=== PATIENT | female | born 1960 | race Caucasian/White ===

== ENCOUNTER 2016-08-16 19:56 | Observation (INO) | payer MEDICAID ==
[~2016-08-16] VITALS: Ht 154.9 cm; Wt 64.0 kg
[~2016-08-16 19:56] MED LIST: AMIODARONE 200200 MG PO; AMOXICILLIN 50500 MG PO; ASPIRIN 81MG TA81 MG PO; ATENOLOL25 M1 PO; ATENOLOL25 MG PO; ATENOLOL50 MG PO; AYR SALINE NASA TP; BACTRIM 400 MG-1 TAB PO; BACTRIM DS 8001 TA1 PO; BACTRIM DS 8001 TAB PO; CALCIUM CITRAT200 M1 PO; CALTRATE 600+D1 TAB PO; CARDIZEM CD120 MG PO; CARTIA XT120 MG PO; CEFTIN 250MG T250 MG PO; CEFTIN500 MG PO; CEFUROXIME AXE500 MG PO; CENTRUM SILVER1 EACH PO; CENTRUM SILVER1 TA1 PO; CENTRUM SILVER1 TAB PO; CIPRO 250MG TA250 MG PO; CIPROFLOXACIN500 MG PO; CITRACAL200 MG PO; CLARINEX-D 24 H1 T24 PO; CLARITIN 10MG T10 MG PO; CLARITIN-D 10 M1 T24 PO; CLARITIN-D 24 H1 T24 PO; CLONAZEPAM0.5 M1 PO; COUMADIN 1 MG TA1 MG PO; COUMADIN 2.5MG2.5 MG PO; COUMADIN 5MG TAB5 MG PO; COUMADIN4 MG PO; COUMADIN6 MG PO; DIGOXIN0.125 MG PO; DIGOXIN0.25 MG PO; DOXYCYCLINE HY100 M4 PO; DOXYCYCLINE100 M1 PO; FEOSOL325 MG PO; FERROUS SULFAT325 M1 OR; FLONASE 50 MCG16 GM; FUROSEMIDE 20MG20 MG PO; GABAPENTIN100 MG PO; HYDROCHLOROTH12.5 M1 PO; HYDROXYZINE 25M25 MG PO; HYDROXYZINE HCL25 MG PO; HYDROXYZINE HYD50 M1 PO; HYDROXYZINE10 MG PO; KEFLEX 500MG.500 MG PO; KEFLEX500 M1 PO; KLONOPIN 0.5MG0.5 MG NG; KLONOPIN 0.5MG0.5 MG PO; KLOR-CON M1010 MEQ PO; LANOXIN 0.25M0.25 MG PO; LASIX 20MG. TAB20 MG PO; LASIX 40MG. TAB40 MG PO; LEVAQUIN500 MG PO; LEVOTHROID0.05 MG FT; LEVOTHYROXIN0.125 M1 PO; LEVOTHYROXINE0.05 MG PO; LISINOPRIL 10MG10 MG NG; LISINOPRIL 5MG T5 MG PO; LISINOPRIL/HCTZ1 TA3 PO; LODRANE 24D 121 C24 PO; LOPRESSOR 25MG.25 M1 OR; LOVENOX 6060 MG/0.6 SC; MEDROL 4MG. DOSE4 MG PO; METFORMIN 500M500 M1 PO; MICRO-K10 MEQ PO; NAPROSYN500 M1 PO; NORCO 325 MG-51 TAB PO; PAIN & FEVER325 MG PO; PANTOPRAZOLE SO40 MG PO; PHENERGAN VC +120 ML PO; POTASSIUM CHLO10 ME3 PO; PREDNISONE 10MG10 MG PO; PREDNISONE 20MG20 MG PO; PREDNISONE 5MG.5 MG PO; PREMARIN 0.3MG0.3 MG OR; PROMETHAZINE D180 ML PO; PROMETHAZINE5 ML/UDC PO; PROVENTIL0.09 MG/A1 IH; ROBAXIN-750750 MG PO; SINGULAIR 10 MG10 MG PO; SINGULAIR10 MG PO; SOTALOL80 MG PO; SYMBICORT 10.10.2 ML IH; SYMBICORT1 AE1 IH; SYNTHROID 0.10.15 MG PO; TENORMIN50 MG PO; TESSALON PERLE200 MG PO; TRAMADOL50 M1 PO; TUMS500 MG PO; VISTARIL25 M1 PO; ZOFRAN ODT4 MG PO; ZYVOX600 MG PO
[2016-08-16 19:57] VITALS: BP 125/69
[2016-08-16] MEDS ORDERED: ATENOLOL25 MG PO (20:06)
[2016-08-16 20:32] LABS: HEMOGLOBIN 12.9 g/dL (12.2-16.2); LYMPH # 2.2 K/mm3 (0.7-4.5); LYMPH % 32.6 % (10-50.0)
--- NOTE | 2016-08-16 20:51 | Emergency Room Report ---
History of Present Illness Time Seen by 2025 Presenting Problem in Triage Pt arrived:Walked Presenting Problem:C/O CHEST PAIN WITH PALPITATIONS. STARTED 08/08/2016. HAS BEEN SEEN BY DR CONCEPCION AND RIOS UNDERWOOD FOR DR ONTIVEROS. 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 N Clinical Suspician of Infection? N Mental Status: 1 - Regular (Normal Baseline) Sepsis Risk:Low Sepsis Risk Have you (or family members/close friends) recently traveled outside the [place]? N If Yes, where/when: Have you had exposure to infectious disease within the past month? N TB? Other? Specify: Comment The patient says that she has had chest pain and palpitations for 8 days. She saw her PCP on the first day. She had an outpatient Holter monitor and blood work which were normal. She saw Rios, physician cardiovascular physician assistant for Dr. Ontiveros, gauntlet pairer, yesterday. She was started on atenolol, she says this is not helped. She complains of continued palpitations and says that she has had chest pain off and on all day. She currently has a chest pain in the center of her chest that is been present since 6:00 PM. She denies shortness of breath. She says she has had diaphoresis. She denies nausea. She also says that she has had black stool for one week. She is on iron, but says her stool is normally brown. She saw Dr. Morrow in the office yesterday to get set up for colonoscopy because of abdominal pain. She told him about the black stool and he also scheduled her for an EGD at the same time, she is supposed to have these on Thursday. She is normally on warfarin for chronic atrial fibrillation, but has been on Lovenox injections since instead of warfarin in preparation for her procedure. She says that she called her PCP today and was informed that Dr. Donald was construction site crossing guard and was told to come to the emergency room. ALLERGIES Coded Allergies: latex (Mild, I-HIVES 02/22/16) Home Medications Active Scripts Montelukast Sodium (Singulair) 10 MG PO QHS #30 TAB Prov: 03/30/16 DIGOXIN (Digox) 0.125 MG PO DAILY #30 TAB Prov: 02/23/16 Doxycycline Hyclate 100 MG PO BID #20 CAPSULE Prov: 05/28/16 Reported Medications Fluticasone Propionate (Flonase 50 Mcg Nasal [place]) 1 SPRAY NA DAILY #1 BOT Loratadine (Claritin 10MG) 10 MG PO DAILY BUDESONIDE/FORMOTEROL FUMARATE (Symbicort 160-4.5 Mcg Inhaler) 2 PUFFS IH BID #1 INH Calcium Citrate 600 MG PO DAILY Multivit-Min/FA/Lycopene/Lut (Centrum Silver Tablet) 500 MG PO DAILY Pantoprazole Sodium (Pantoprazole 40MG) 40 MG PO DAILY WARFARIN SOD (Coumadin) 7.5 MG PO SuTuThSa Furosemide (Lasix 40MG) 40 MG PO BID Ferrous Sulfate (Ferrous Sulfate 325MG) 325 MG OR DAILY ALBUTEROL (Proventil Hfa Inhaler) 2 PUFF IH Q6HP PRN BREATHING #1 PUFF Levothyroxine Sodium 0.125 MG PO DAILY #90 TAB MULTIVIT,THER IRON,CA,FA & MIN (Sm Therapeutic M Tablet) 1 TAB PO DAILY Potassium Chloride (Klor-Con M10) 10 MEQ PO DAILY #90 TER Clonazepam (Klonopin 0.5MG) 0.25 MG PO BID WARFARIN SOD (Coumadin) 5 MG PO MWF Gabapentin (Gabapentin 100MG) 100 MG PO QHS Metformin HCl (Metformin) 500 MG PO DAILY ASPIRIN (Aspirin) 81 MG PO DAILY Atenolol (Atenolol) 25 MG PO BID History Medical History General CAD? No Angina: Yes [place]: No Hypertension? Yes Hyperlipidemia? No CHF? Yes DVT? No PE? No COPD? No Asthma? Yes Anemia? No GERD? Yes Gastric ulcers? No GI Bleed? No Hernia? Yes Thyroid Problems? Yes Hypothyroidism? Yes CVA? No Seizures? No Diabetes? Yes Insulin Dependent: No Insulin Pump: No Home FSBS? No Renal Insuffiency? No End Stage Renal Disease? No UTI? Yes Stones? No BPH? No GB Disease: No Nephritic Syndrome? No Asplenia? No Hepatitis? No Sickle Cell Disease? No Arthritis? No Migraines? Yes Cataracts? No Glaucoma? No MRSA? Yes HIV? No TB? No Anxiety? Yes Depression? No Cancer? No More? 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 Hx LMP N/A Family History Family Hx Diabetes Yes CAD Yes Hypertension Yes Hyperlipidemia No Cancer Yes TB No Social History Smoking Hx Smoker: Never Smoker Tobacco: No Packs/day N/A Alcohol Alcohol: No Review of Systems All Other Systems Reviewed and Negative Constitutional diaphoresis, denies fever Respiratory denies shortness of breath Cardiovascular chest pain, palpitations Gastrointestinal see HPI, abdominal pain, denies nausea, denies vomiting Physical Exam Vital Signs Vital Signs Date Time Temp Pulse Resp B/P Pulse O2 O2 Flow FiO2 Ox Delivery Rate 08/17 0025 98.6 77 20 116/71 08/17 0024 77 08/17 0024 94 ROOM AIR 08/17 0015 98.6 77 20 116/71 94 08/17 0013 98.6 77 20 116/71 94 08/16 2325 98.6 70 20 121/64 93 08/16 2305 20 08/16 2240 70 20 132/63 94 08/16 2235 20 08/16 2233 70 20 149/64 94 08/16 2227 20 08/16 2224 70 20 145/70 95 08/16 2218 20 08/16 2213 70 20 133/52 94 08/16 2202 70 20 127/68 95 08/16 2112 70 20 133/68 98 08/16 2028 70 20 118/67 98 08/16 1957 98.6 70 20 125/69 96 General Appearance normal appearance, WD/WN Eye Exam - bilateral eye normal exam, bilateral eye PERRL, bilateral eye EOMI Ear, Nose, Throat hearing grossly normal, normal ENT inspection Neck normal inspection, non-tender, supple, full range of motion Respiratory Status Yes: trachea midline, chest symmetrical, non tender chest. No: respiratory distress. Lung Sounds bilateral: normal breath sounds, lungs clear. Cardiovascular normal exam, regular rate/rhythm, no peripheral edema, no gallop, no JVD, no murmur, no rub, normal peripheral pulses Peripheral Pulses Pulses normal Yes Gastrointestinal normal bowel sounds, normal exam, non tender, soft, no organomegaly Back normal inspection, no CVA tenderness, no vertebral tenderness Extremities non-tender, normal range of motion, normal inspection Rectal normal exam Neurologic alert, gallery manager II-XII nml as tested, normal exam, oriented x 3 Mental status normal mood/affect Skin intact, normal color, warm/dry Medical Decision Making LABS/Meds/Orders Pt receiving controlled substance in ED? No Results/Orders Laboratory Tests 08/16/16 2100: Stool Occult Blood NEGATIVE 08/16/162024: Sodium 145, Potassium 3.3 L, Chloride 108 H, Carbon Dioxide 31, BUN 13, Creatinine 0.9, Estimated Creat Clear 69, Estimated GFR (MDRD) 64, Glucose 132 H, Calcium 8.8, Total Bilirubin 0.4, AST 41 H, ALT 53, Alkaline Phosphatase 87, Creatine Kinase 107, CK-MB (CK-2) Rel Index 2.1, CK and CKMB Interp 2.2, Troponin I 0.02, Total Protein 7.3, Albumin 3.7, Globulin 3.6 H, Albumin/ Globulin Ratio 1.0 L, PT 10.9, INR 1.02, APTT 31.3, WBC 6.6, RBC 4.00 L, Hgb 12.9, Hct 38.7, MCV 96.7, RDW 13.8, Plt Count 202, MPV 6.7 L, Gran % 55.3, Gran # 3.7, Lymphocytes % 32.6, Monocytes % 7.9, Eosinophils % 3.3, Basophils % 0.9, Lymphocytes # 2.2, Monocytes # 0.5, Eosinophils # 0.2, Basophils # 0.1, PUBS MCHC 33.5, MCH 32.4 H Current Medication Orders Sig/Kelley Start time Last Medication Dose Route Stop Time Status Admin Enoxaparin Sodium 60 MG BID 08/17 0900 UNV SC Diagnostic Test (Pha) 1 EACH W/MEALS&HS 08/17 0700 UNV FS 10/16 0659 Insulin Human [rDNA See Dose W/MEALS&HS 08/17 07 UNV origin] Insts (1) SC Morphine Sulfate 2 MG Q2HP PRN 08/16 5475 UNV IV Nicotine 21 MG DAILYP PRN 08/16 2345 UNV TD Ondansetron HCl 4 MG Q6HP PRN 08/16 2345 UNV IV Sodium Chloride 10 ML PRN PRN 08/16 2345 UNV IV Ondansetron HCl 0 .STK-MED ONE 08/16 2316 DC .ROUTE Ondansetron HCl 0 .STK-MED ONE 08/16 2305 DC .ROUTE Morphine Sulfate 0 .STK-MED ONE 08/164 DC .ROUTE Morphine Sulfate 4 MG ONCE ONE 08/16 2300 DC 08/16 IV 08/16 2300 2305 Ondansetron HCl 4 MG ONCE ONE 08/16 2300 DC 08/16 IV 08/16 2300 230 Nitroglycerin 0.4 MG [id number] PRN 08/16 2214 AC 08/16 SL 2235 Nitroglycerin 0 .STK-MED ONE 08/17 2203 DC SL Sodium Chloride 10 ML PRN PRN 08/16 2014 AC 08/16 IV 08/17 Dose Instructions: (1)Insulin Human [rDNA origin]: SEE ADMIN CRITERIA FOR MEDIUM INTENSITY Orders Procedure Date/time Status -1999 CALORIE ADA 08/17 B Active CARDIAC ENZYMES 08/17 0700 Active CARDIAC ENZYMES 08/17 0400 Active CARDIAC ENZYMES 08/17 0100 Active Decision to admit 08/16 2313 Active STOOL OCCULT BLOOD 08/16 2114 Complete PROTIME/PARTIAL PROTIME 08/16 2029 Complete CHEST(2 VIEWS-NOT PORTABLE) 08/16 2009 Active IV SALINE LOCK 08/16 2010 Active SOLAR ENERGY ADVISOR 08/16 2009 Active COMPLETE METABOLIC PANEL 08/16 2009 Complete CBC WITH AUTO DIFF 08/16 2009 Complete CARDIAC ENZYMES 08/16 2009 Complete ADMIT PATIENT 08/16 UNK Active PULSE OXIMETRY REQUEST 08/16 UNK Active OXYGEN REQUEST 08/16 UNK Active VITAL SIGNS 08/16 UNK Active EMERGENCY MANAGER 08/16 UNK Active IV SALINE LOCK 08/16 UNK Active CODE STATUS 08/16 UNK Active PATIENT ACTIVITY ORDER 08/16 UNK Active CM/EKG CM/EKG Comments EKG interpreted by Colby Ny MD: Rhythm: Ventricular paced rhythm, underlying rhythm appears to be atrial fibrillation Rate: 70 No evidence of acute ischemia or injury XRAY/CT/US XRAY/CT/US XRAY chest Comment X-ray interpreted by Colby Ny M.D.: cardiomegaly, pacemaker, sternotomy, mitral and aortic valve replacements, no acute change Progress - 11:00 PM: The patient continues to complain of 10/10 chest pain, although she looks completely comfortable. No response to nitroglycerin. I have discussed the case with Dr. Donald for Dr. Concepcion who agrees to admit the patient to the hospital. We discussed the patient's clinical information, including history, exam, laboratory and radiology results and ED course. Per hospital procedure, I will write temporary bridge inpatient orders on the patient. Specific orders requested by the admitting physician: serial cardiac enzymes, morphine for pain Departure Departure Disposition Still a Patient Clinical Impression Primary Impression: Precordial chest pain Condition STABLE Referrals Summer Concepcion MD (Family) ED Critical Care Critical Care No at [phone]
--- NOTE | 2016-08-16 20:51 | Emergency Room Report ---
History of Present Illness Time Seen by 2025 Presenting Problem in Triage Pt arrived:Walked Presenting Problem:C/O CHEST PAIN WITH PALPITATIONS. STARTED 08/08/2016. HAS BEEN SEEN BY DR CONCEPCION AND RIOS UNDERWOOD FOR DR ONTIVEROS. 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 N Clinical Suspician of Infection? N Mental Status: 1 - Regular (Normal Baseline) Sepsis Risk:Low Sepsis Risk Have you (or family members/close friends) recently traveled outside the [place]? N If Yes, where/when: Have you had exposure to infectious disease within the past month? N TB? Other? Specify: Comment The patient says that she has had chest pain and palpitations for 8 days. She saw her PCP on the first day. She had an outpatient Holter monitor and blood work which were normal. She saw Rios, physician administrative office assistant for Dr. Ontiveros, director packaging, yesterday. She was started on atenolol, she says this is not helped. She complains of continued palpitations and says that she has had chest pain off and on all day. She currently has a chest pain in the center of her chest that is been present since 6:00 PM. She denies shortness of breath. She says she has had diaphoresis. She denies nausea. She also says that she has had black stool for one week. She is on iron, but says her stool is normally brown. She saw Dr. Morrow in the office yesterday to get set up for colonoscopy because of abdominal pain. She told him about the black stool and he also scheduled her for an EGD at the same time, she is supposed to have these on Thursday. She is normally on warfarin for chronic atrial fibrillation, but has been on Lovenox injections since instead of warfarin in preparation for her procedure. She says that she called her PCP today and was informed that Dr. Donald was consumer relations complaint clerk and was told to come to the emergency room. ALLERGIES Coded Allergies: latex (Mild, I-HIVES 02/22/16) Home Medications Active Scripts Montelukast Sodium (Singulair) 10 MG PO QHS #30 TAB Prov: 03/30/16 DIGOXIN (Digox) 0.125 MG PO DAILY #30 TAB Prov: 02/23/16 Doxycycline Hyclate 100 MG PO BID #20 CAPSULE Prov: 05/28/16 Reported Medications Fluticasone Propionate (Flonase 50 Mcg Nasal [place]) 1 SPRAY NA DAILY #1 BOT Loratadine (Claritin 10MG) 10 MG PO DAILY BUDESONIDE/FORMOTEROL FUMARATE (Symbicort 160-4.5 Mcg Inhaler) 2 PUFFS IH BID #1 INH Calcium Citrate 600 MG PO DAILY Multivit-Min/FA/Lycopene/Lut (Centrum Silver Tablet) 500 MG PO DAILY Pantoprazole Sodium (Pantoprazole 40MG) 40 MG PO DAILY WARFARIN SOD (Coumadin) 7.5 MG PO SuTuThSa Furosemide (Lasix 40MG) 40 MG PO BID Ferrous Sulfate (Ferrous Sulfate 325MG) 325 MG OR DAILY ALBUTEROL (Proventil Hfa Inhaler) 2 PUFF IH Q6HP PRN BREATHING #1 PUFF Levothyroxine Sodium 0.125 MG PO DAILY #90 TAB MULTIVIT,THER IRON,CA,FA & MIN (Sm Therapeutic M Tablet) 1 TAB PO DAILY Potassium Chloride (Klor-Con M10) 10 MEQ PO DAILY #90 TER Clonazepam (Klonopin 0.5MG) 0.25 MG PO BID WARFARIN SOD (Coumadin) 5 MG PO MWF Gabapentin (Gabapentin 100MG) 100 MG PO QHS Metformin HCl (Metformin) 500 MG PO DAILY ASPIRIN (Aspirin) 81 MG PO DAILY Atenolol (Atenolol) 25 MG PO BID History Medical History General CAD? No Angina: Yes [place]: No Hypertension? Yes Hyperlipidemia? No CHF? Yes DVT? No PE? No COPD? No Asthma? Yes Anemia? No GERD? Yes Gastric ulcers? No GI Bleed? No Hernia? Yes Thyroid Problems? Yes Hypothyroidism? Yes CVA? No Seizures? No Diabetes? Yes Insulin Dependent: No Insulin Pump: No Home FSBS? No Renal Insuffiency? No End Stage Renal Disease? No UTI? Yes Stones? No BPH? No GB Disease: No Nephritic Syndrome? No Asplenia? No Hepatitis? No Sickle Cell Disease? No Arthritis? No Migraines? Yes Cataracts? No Glaucoma? No MRSA? Yes HIV? No TB? No Anxiety? Yes Depression? No Cancer? No More? 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 Hx LMP N/A Family History Family Hx Diabetes Yes CAD Yes Hypertension Yes Hyperlipidemia No Cancer Yes TB No Social History Smoking Hx Smoker: Never Smoker Tobacco: No Packs/day N/A Alcohol Alcohol: No Review of Systems All Other Systems Reviewed and Negative Constitutional diaphoresis, denies fever Respiratory denies shortness of breath Cardiovascular chest pain, palpitations Gastrointestinal see HPI, abdominal pain, denies nausea, denies vomiting Physical Exam Vital Signs Vital Signs Date Time Temp Pulse Resp B/P Pulse O2 O2 Flow FiO2 Ox Delivery Rate 08/17 0025 98.6 77 20 116/71 08/17 0024 77 08/17 0024 94 ROOM AIR 08/17 0015 98.6 77 20 116/71 94 08/17 0013 98.6 77 20 116/71 94 08/16 2325 98.6 70 20 121/64 93 08/16 2305 20 08/16 2240 70 20 132/63 94 08/16 2235 20 08/16 2233 70 20 149/64 94 08/16 2227 20 08/16 2224 70 20 145/70 95 08/16 2218 20 08/16 2213 70 20 133/52 94 08/16 2202 70 20 127/68 95 08/16 2112 70 20 133/68 98 08/16 2028 70 20 118/67 98 08/16 1957 98.6 70 20 125/69 96 General Appearance normal appearance, WD/WN Eye Exam - bilateral eye normal exam, bilateral eye PERRL, bilateral eye EOMI Ear, Nose, Throat hearing grossly normal, normal ENT inspection Neck normal inspection, non-tender, supple, full range of motion Respiratory Status Yes: trachea midline, chest symmetrical, non tender chest. No: respiratory distress. Lung Sounds bilateral: normal breath sounds, lungs clear. Cardiovascular normal exam, regular rate/rhythm, no peripheral edema, no gallop, no JVD, no murmur, no rub, normal peripheral pulses Peripheral Pulses Pulses normal Yes Gastrointestinal normal bowel sounds, normal exam, non tender, soft, no organomegaly Back normal inspection, no CVA tenderness, no vertebral tenderness Extremities non-tender, normal range of motion, normal inspection Rectal normal exam Neurologic alert, prop setter II-XII nml as tested, normal exam, oriented x 3 Mental status normal mood/affect Skin intact, normal color, warm/dry Medical Decision Making LABS/Meds/Orders Pt receiving controlled substance in ED? No Results/Orders Laboratory Tests 08/16/16 2100: Stool Occult Blood NEGATIVE 08/16/162024: Sodium 145, Potassium 3.3 L, Chloride 108 H, Carbon Dioxide 31, BUN 13, Creatinine 0.9, Estimated Creat Clear 69, Estimated GFR (MDRD) 64, Glucose 132 H, Calcium 8.8, Total Bilirubin 0.4, AST 41 H, ALT 53, Alkaline Phosphatase 87, Creatine Kinase 107, CK-MB (CK-2) Rel Index 2.1, CK and CKMB Interp 2.2, Troponin I 0.02, Total Protein 7.3, Albumin 3.7, Globulin 3.6 H, Albumin/ Globulin Ratio 1.0 L, PT 10.9, INR 1.02, APTT 31.3, WBC 6.6, RBC 4.00 L, Hgb 12.9, Hct 38.7, MCV 96.7, RDW 13.8, Plt Count 202, MPV 6.7 L, Gran % 55.3, Gran # 3.7, Lymphocytes % 32.6, Monocytes % 7.9, Eosinophils % 3.3, Basophils % 0.9, Lymphocytes # 2.2, Monocytes # 0.5, Eosinophils # 0.2, Basophils # 0.1, PUBS MCHC 33.5, MCH 32.4 H Current Medication Orders Sig/Kelley Start time Last Medication Dose Route Stop Time Status Admin Enoxaparin Sodium 60 MG BID 08/17 0900 UNV SC Diagnostic Test (Pha) 1 EACH W/MEALS&HS 08/17 0700 UNV FS 10/16 0659 Insulin Human [rDNA See Dose W/MEALS&HS 08/17 07 UNV origin] Insts (1) SC Morphine Sulfate 2 MG Q2HP PRN 08/16 6535 UNV IV Nicotine 21 MG DAILYP PRN 08/16 2345 UNV TD Ondansetron HCl 4 MG Q6HP PRN 08/16 2345 UNV IV Sodium Chloride 10 ML PRN PRN 08/16 2345 UNV IV Ondansetron HCl 0 .STK-MED ONE 08/16 2316 DC .ROUTE Ondansetron HCl 0 .STK-MED ONE 08/16 2305 DC .ROUTE Morphine Sulfate 0 .STK-MED ONE 08/164 DC .ROUTE Morphine Sulfate 4 MG ONCE ONE 08/16 2300 DC 08/16 IV 08/16 2300 2305 Ondansetron HCl 4 MG ONCE ONE 08/16 2300 DC 08/16 IV 08/16 2300 230 Nitroglycerin 0.4 MG [id number] PRN 08/16 2214 AC 08/16 SL 2235 Nitroglycerin 0 .STK-MED ONE 08/17 2203 DC SL Sodium Chloride 10 ML PRN PRN 08/16 2014 AC 08/16 IV 08/17 Dose Instructions: (1)Insulin Human [rDNA origin]: SEE ADMIN CRITERIA FOR MEDIUM INTENSITY Orders Procedure Date/time Status -1999 CALORIE ADA 08/17 B Active CARDIAC ENZYMES 08/17 0700 Active CARDIAC ENZYMES 08/17 0400 Active CARDIAC ENZYMES 08/17 0100 Active Decision to admit 08/16 2313 Active STOOL OCCULT BLOOD 08/16 2114 Complete PROTIME/PARTIAL PROTIME 08/16 2029 Complete CHEST(2 VIEWS-NOT PORTABLE) 08/16 2009 Active IV SALINE LOCK 08/16 2010 Active FIELD SERVICE SPECIALIST 08/16 2009 Active COMPLETE METABOLIC PANEL 08/16 2009 Complete CBC WITH AUTO DIFF 08/16 2009 Complete CARDIAC ENZYMES 08/16 2009 Complete ADMIT PATIENT 08/16 UNK Active PULSE OXIMETRY REQUEST 08/16 UNK Active OXYGEN REQUEST 08/16 UNK Active VITAL SIGNS 08/16 UNK Active CASTING OPERATOR 08/16 UNK Active IV SALINE LOCK 08/16 UNK Active CODE STATUS 08/16 UNK Active PATIENT ACTIVITY ORDER 08/16 UNK Active CM/EKG CM/EKG Comments EKG interpreted by Colby Ny MD: Rhythm: Ventricular paced rhythm, underlying rhythm appears to be atrial fibrillation Rate: 70 No evidence of acute ischemia or injury XRAY/CT/US XRAY/CT/US XRAY chest Comment X-ray interpreted by Colby Ny M.D.: cardiomegaly, pacemaker, sternotomy, mitral and aortic valve replacements, no acute change Progress - 11:00 PM: The patient continues to complain of 10/10 chest pain, although she looks completely comfortable. No response to nitroglycerin. I have discussed the case with Dr. Donald for Dr. Concepcion who agrees to admit the patient to the hospital. We discussed the patient's clinical information, including history, exam, laboratory and radiology results and ED course. Per hospital procedure, I will write temporary bridge inpatient orders on the patient. Specific orders requested by the admitting physician: serial cardiac enzymes, morphine for pain Departure Departure Disposition Still a Patient Clinical Impression Primary Impression: Precordial chest pain Condition STABLE Referrals Summer Concepcion MD (Family) ED Critical Care Critical Care No at [phone]
[2016-08-16 21:49] LABS: STOOL OCCULT BLOOD NEGATIVE (NEG)
[2016-08-17] VITALS (8 sets, daily range): BP systolic 107–139; BP diastolic 46–71
--- NOTE | 2016-08-17 08:55 | PHARMACY CLINIC NOTE ---
Patient Demographics Patient Demographics Admission date: 08/17/16 Date: 08/17/16 Time: 0854 Allergies Coded Allergies: latex (Mild, I-HIVES 02/22/16) HEIGHT- FT: 5 IN: 1.00 K.496 VTE General Information Labs: Laboratory Tests 08/16 2024 Coagulation PT (9.4 - 11.8 SECONDS) 10.9 INR (0.9 - 1.1) 1.02 APTT (23.6 - 34.0 SECONDS) 31.3 Hematology Hgb (12.2 - 16.2 g/dL) 12.9 Hct (37.0 - 47.0 %) 38.7 Plt Count (142 - 424 K/mm3) 202 Disclaimer The following section includes nursing documentation that has been pulled in for pharmacy review. Patient's VTE score: 2 Patient's VTE Risk: VERY LOW RISK Clinical trial participant? No VTE prophylaxis [id number] [id number] VTE prophylaxis ordered? Yes Type of prophylaxis/treatment: Lovenox at 0854
[2016-08-17 09:10] LABS: LYMPH % 32.9 % (10-50.0)
[2016-08-17 09:12] LABS: FREE THYROXIN INDEX 7.9 ug/dl (5.93-13.13)
--- NOTE | 2016-08-17 09:23 | HISTORY AND PHYSICAL REPORT ---
History and Physical ([facility]) Date of admission: 08/17/16 Chief complaint: Chest pain History: History of Present Illness: Ms. Bo is a 56-year-old white female with a history of chronic atrial fibrillation, sick sinus syndrome status post permanent pacemaker, valvular heart disease status post aortic and mitral valve replacement, hypertension, hypothyroidism, and type 2 diabetes mellitus. 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 Cisneros and Dr. Mendoza. Over the past week she has been experiencing episodes of palpitations with rapid heartbeat and intermittent chest pain and diaphoresis. This is usually brought on with exertion. She was seen in the office on 08/08/16 with the complaints. Holter monitor at that time showed no significant dysrhythmias aside from her chronic atrial fibrillation. Her chest pain was worse yesterday and she contacted Dr. Donald salesperson flying squad and he advised her to go to the emergency room. She is also reported dark stools over the past couple of weeks. Her hemoglobin has remained stable. She does take an iron supplement. She is scheduled for EGD and colonoscopy by Dr. Morrow on Thursday. On evaluation in the emergency room, her cardiac enzymes were normal. CBC again showed a stable hemoglobin. Electrolytes were remarkable for slightly decreased potassium. She continued to complain of 10 out 10 chest pain in the emergency room despite being given morphine therefore was admitted for further evaluation and observation. This morning, her main complaint is extreme fatigue. Still has chest pain rated 5/10 but does not exhibit physical signs of pain. She still complains of palpitations and her varnisher plasticoater shows only controlled atrial fibrillation. Past Medical History: Medical History: CAD? No Angina: Yes NH: No Hypertension? Yes Hyperlipidemia? No CHF? Yes DVT? No PE? No COPD? No Asthma? Yes Anemia? No GERD? Yes Gastric ulcers? No GI Bleed? No Hernia? Yes Thyroid Problems? Yes Hypothyroidism? Yes CVA? No Seizures? No Diabetes? Yes Insulin Dependent: No Insulin Pump: No Home FSBS? No Renal Insuffiency? No UTI? Yes Stones? No BPH? No GB Disease: No Nephritic Syndrome? No Asplenia? No Hepatitis? No Sickle Cell Disease? No Arthritis? No Migraines? Yes Cataracts? No Glaucoma? No MRSA? Yes HIV? No TB? No Anxiety? Yes Depression? No Cancer? No More? Yes Additional hx: Chronic AFIB Additional medical history: Valvuar heart disease Alpha 1-antitrypsin deficiency Grave's disease Seasonal allergies Surgical history: Previous Surgery?Y Tubal Ligation MITRAL VALVE X2 Colon CARDIAC ABLATION CHOLECYSTECTOMY PARTIAL THYROIDECTOMY NASAL SURGERY PACEMAKER PLACEMENT Left femur fx and repair - 1968 Tracheostomy - 1968 Reconstuction left ey muscles - 1968 Umbilical hernia repair Lysis of adhesions AVR and MVR 01/2014 Medications: Active Scripts Montelukast Sodium (Singulair) 10 MG PO QHS #30 TAB Prov: 03/30/16 DIGOXIN (Digox) 0.125 MG PO DAILY #30 TAB Prov: 02/23/16 Doxycycline Hyclate 100 MG PO BID #20 CAPSULE Prov: 05/28/16 Reported Medications Fluticasone Propionate (Flonase 50 Mcg Nasal [place]) 1 SPRAY NA DAILY #1 BOT Loratadine (Claritin 10MG) 10 MG PO DAILY BUDESONIDE/FORMOTEROL FUMARATE (Symbicort 160-4.5 Mcg Inhaler) 2 PUFFS IH BID #1 INH Calcium Citrate 600 MG PO DAILY Multivit-Min/FA/Lycopene/Lut (Centrum Silver Tablet) 500 MG PO DAILY Pantoprazole Sodium (Pantoprazole 40MG) 40 MG PO DAILY WARFARIN SOD (Coumadin) 7.5 MG PO SuTuThSa Furosemide (Lasix 40MG) 40 MG PO BID Ferrous Sulfate (Ferrous Sulfate 325MG) 325 MG OR DAILY ALBUTEROL (Proventil Hfa Inhaler) 2 PUFF IH Q6HP PRN BREATHING #1 PUFF Levothyroxine Sodium 0.125 MG PO DAILY #90 TAB MULTIVIT,THER IRON,CA,FA & MIN (Sm Therapeutic M Tablet) 1 TAB PO DAILY Potassium Chloride (Klor-Con M10) 10 MEQ PO DAILY #90 TER Clonazepam (Klonopin 0.5MG) 0.25 MG PO BID WARFARIN SOD (Coumadin) 5 MG PO MWF Gabapentin (Gabapentin 100MG) 100 MG PO QHS Metformin HCl (Metformin) 500 MG PO DAILY ASPIRIN (Aspirin) 81 MG PO DAILY Atenolol (Atenolol) 25 MG PO BID Allergies: Coded Allergies: latex (Mild, I-HIVES 02/22/16) Family History: Family history: Postive for: CAD. Additional family history: Mother with renal failure Social History: Smoking Hx Tobacco: No Smoker: Never Smoker Type: N/A Packs/day: N/A Are you exposed to second hand No Alcohol: Alcohol: No Hx of Drug Use: Drug Use? 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 No Constitutional Positive for: fatigue, lethargy, malaise, weak, recent weight loss. ENT Positive for: nasal congestion, sinus problems. No: nose bleed, hearing loss, throat swelling. Cardiovascular Positive for: IYER, chest pain, palpitations. No: PND, edema, orthopnea. Respiratory Positive for: dyspnea on exertion, shortness of air. No: PND, hemoptysis, pleurisy, pleuritic pain, pneumonia, productive cough (sputum). GI Positive for: melena, nausea. No: abdominal pain, anorexia, constipation, diarrhea, dysphagia, hematemeis, hematochezia, vomitting. (female) No: frequency, hematuria, nocturia, urgency, vaginal bleeding. Skin Positive for: diaphoresis. No: itching. Neurological Positive for: headache. No: change in LOC, confusion, dizziness, seizure, slurred speech, unable to speak, syncope. Immune/allergy Positive for: allergy, rhinorrhea. No: hives. Eyes No: blurry vision, diploplia, vision loss. Musculoskeletal No: extremity pain, extremity swelling, joint pain. Heme No: bleeding, bruising. Endocrine No: cold intolerance, polydipsia. Psychiatric Positive for: anxious, stress. No: confused, change in mental status. Physical Exam: Vital signs: 1ST Vital Signs Result Date Time Pulse Ox 96 08/16 1956 B/P 125/69 08/16 1956 Temp 98.6 08/16 1956 Pulse 70 08/16 1956 Resp 20 08/16 1956 O2 Delivery ROOM AIR 08/17 0024 Exam: General appearance: alert, no acute distress, flat affect Eyes: anicteric, conjunctiva clear, EOM's w/normal ROM ENT: mucous membranes moist, pharynx normal, teeth/gums normal, tympanic membranes normal Neck: no carotid bruit, no thyromegaly Cardiovascular: irregularly irregular, Gr 3/6 syst murmur Respiratory: clear to auscultation, tenderness to palpation over sternum ABD: non-distended, normal bowel sounds, soft, no tenderness Extremities: no peripheral edema Musculoskeletal: equal muscle strength, motor intact Skin: dry, normal color, warm Neuro: alert, speech clear, no focal deficit Lab data: Labs: Laboratory Tests 08/17/16 0655: Creatine Kinase 68, CK-MB (CK-2) Rel Index 2.1, CK and CKMB Interp 1.4, Troponin I 0.03, WBC 6.2, RBC 3.91 L, Hgb 13.0, Hct 38.4, MCV 98.1 H, RDW 13.7, Plt Count 200, MPV 6.7 L, Gran % 54.8, Gran # 3.4, Lymphocytes % 32.9, Monocytes % 7.9, Eosinophils % 3.8, Basophils % 0.6, Lymphocytes # 2.0, Monocytes # 0.5, Eosinophils # 0.2, Basophils # 0.0, PUBS MCHC 33.9, MCH 33.2 H 08/17/16 0619: POC Glucose 96 08/17/16 0405: Creatine Kinase 69, CK-MB (CK-2) Rel Index 2.3, CK and CKMB Interp 1.6, Troponin I 0.03 08/17/16 0120: Creatine Kinase 102, CK-MB (CK-2) Rel Index 1.7, CK and CKMB Interp 1.7, Troponin I 0.03 08/16/16 2100: Stool Occult Blood NEGATIVE 08/16/162024: Sodium 145, Potassium 3.3 L, Chloride 108 H, Carbon Dioxide 31, BUN 13, Creatinine 0.9, Estimated Creat Clear 69, Estimated GFR (MDRD) 64, Glucose 132 H, Calcium 8.8, Total Bilirubin 0.4, AST 41 H, ALT 53, Alkaline Phosphatase 87, Creatine Kinase 107, CK-MB (CK-2) Rel Index 2.1, CK and CKMB Interp 2.2, Troponin I 0.02, Total Protein 7.3, Albumin 3.7, Globulin 3.6 H, Albumin/ Globulin Ratio 1.0 L, PT 10.9, INR 1.02, APTT 31.3, WBC 6.6, RBC 4.00 L, Hgb 12.9, Hct 38.7, MCV 96.7, RDW 13.8, Plt Count 202, MPV 6.7 L, Gran % 55.3, Gran # 3.7, Lymphocytes % 32.6, Monocytes % 7.9, Eosinophils % 3.3, Basophils % 0.9, Lymphocytes # 2.2, Monocytes # 0.5, Eosinophils # 0.2, Basophils # 0.1, PUBS MCHC 33.5, MCH 32.4 H Diagnosis(es): 1. Precordial chest pain 2. Hypokalemia 3. Essential hypertension Status: Chronic 4. Hypothyroidism Status: Chronic 5. Anxiety Status: Chronic 6. Mechanical heart valve present Status: Chronic 7. Chronic atrial fibrillation 8. Palpitation 9. Type 2 diabetes mellitus 10. Presence of permanent cardiac pacemaker 11. Environmental allergies 12. Mechanical heart valve present Status: Chronic 13. 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 Cardiac enzymes are negative x3. Chest pain is somewhat atypical. Will consult cardiology because of her extensive cardiac history. She will be continued on her maintenance medications from home. She will receive additional potassium supplements. Additional workup will be as indicated per hospital course. at 0964
--- NOTE | 2016-08-17 11:09 | RADIOLOGY REPORT PS360 ---
CHEST(2 VIEWS-NOT PORTABLE) Ordering Physician: Colby Ny MD Patient Age: 56 years: Female HISTORY: CHEST PAIN Chest pain since yesterday. History of atrial fibrillation pacemaker valve repair TECHNIQUE: PA and lateral chest COMPARISON-June 16, 2016 CXR & to March 2016 CXR FINDINGS No significant change since June 16, 2016 nor April 07, 2017 Prominent cardiomegaly Pacemaker overlies left chest with single lead intact to the LV. Sternotomy. Aortic and likely mitral valve replacement. . Generous upper normal pulmonary vascularity but appear to be baseline for this patient . Stable mild vascular engorgement but no overt acute or progressive CHF. There could be some mild chronic CHF changes question the presence Slight blunting at the right CP angle is stable likely reflecting mild chronic pleural changes No evidence of pleural effusion blunting the posterior sulcus on lateral view. Elevation right hemidiaphragm similar to previous studies Chest wall and T-spine unremarkable.. IMPRESSION: Stable chest. Nothing definitely acute.. Prominent cardiomegaly with pacemaker. Sternotomy with valve replacements Generous pulmonary vascularity but no additional acute CHF features
[2016-08-18] VITALS (7 sets, daily range): BP systolic 92–137; BP diastolic 37–60
--- NOTE | 2016-08-18 08:17 | ACUTE CARE PROGRESS NOTE (QUA) ---
Progress Notes Subjective Date 08/18/16 Time 0809 Note CP has resolved although still having brief frequent feeling of palpitations; some SOB with this. Some pain with deep inspiration. Eating as usual; had brief nausea. Has had some left lower back spasms and received Morphine for this during the night. Is still bothersome this AM. Has ambulated in the hallway and been up in the chair without problems. Voiding QS. Bowels last moved 08/15/16. Objective Findings Laboratory Tests 08/18/16 0600: Sodium 144, Potassium 3.8, Chloride 105, Carbon Dioxide 31, BUN 15, Creatinine 0.7, Estimated Creat Clear 90, Estimated GFR (MDRD) 86, Glucose 106, Calcium 8.4 L 08/17/16 2005: POC Glucose 124 H 08/17/16 1702: POC Glucose 123 H 08/17/16 1147: POC Glucose 137 H Vital Signs Date Time Temp Pulse Resp B/P Pulse O2 O2 Flow FiO2 Ox Delivery Rate 08/18 0604 2 08/18 0604 2 08/18 0604 2 08/18 0604 92 2 08/18 0550 93 ROOM AIR 08/18 0430 97.8 71 18 104/37 93 ROOM AIR 08/18 0210 18 08/18 0030 97.6 70 18 96/51 95 ROOM AIR 08/17 2030 98.2 70 18 127/61 97 ROOM AIR 08/17 2007 97.4 70 18 111/56 93 08/17 1549 97.4 70 18 111/56 93 ROOM AIR 08/17 1151 98.3 69 18 107/46 97 ROOM AIR 08/17 0855 97.8 70 18 139/54 99 Current Medications Clonazepam 0 .STK-MED ONE .ROUTE (DC) Morphine Sulfate 0 .STK-MED ONE .ROUTE (DC) Gabapentin 100 MG QHS PO Montelukast Sodium 10 MG QHS PO Acetaminophen 0 .STK-MED ONE PO (DC) Clonazepam 0 .STK-MED ONE .ROUTE (DC) Acetaminophen 0 .STK-MED ONE PO (DC) Clonazepam 0 .STK-MED ONE .ROUTE (DC) Aspirin 81 MG DAILY PO Atenolol 25 MG BID PO Clonazepam 0.25 MG BID PO Digoxin 0.125 MG DAILY PO Enoxaparin Sodium 60 MG BID SC Ferrous Sulfate 325 MG DAILY PO Fluticasone Propionate 1 SPR DAILY NA Furosemide 40 MG BID PO Levothyroxine Sodium 0.125 MG DAILY PO Loratadine 10 MG DAILY PO Metformin HCl 500 MG DAILY PO Pantoprazole Sodium 40 MG DAILY PO Potassium Chloride 10 MEQ BID PO Acetaminophen 1,000 MG Q6HP PRN PO Albuterol 2 PUFFS Q6HP PRN IH Miscellaneous 1 UNIT ONCE ONE XX (DC) Diagnostic Test (Pha) 1 EACH W/MEALS&HS FS Insulin Human [rDNA origin] SEE ADMIN CRITERIA FOR MEDIUM INTENSITY W/MEALS&HS SC Morphine Sulfate 2 MG Q2HP PRN IV Nicotine 21 MG DAILYP PRN TD Ondansetron HCl 4 MG Q6HP PRN IV Sodium Chloride 10 ML PRN PRN IV Nitroglycerin 0.4 MG [id number] PRN SL Sodium Chloride 10 ML PRN PRN IV (DC) 08/17 1500 08/17 2300 08/18 0700 Intake Total 480 240 Output Total Balance 480 240 Intake, Oral 480 240 Patient 143 lb Weight Lab Troponin I 0.07 ng/mL H 02/21/16 0210 Last VS-Temp:97.8 B/P:104/37 Pulse:71 Resp:18 SaO2:92 ROOM AIR Last weight lbs:143 oz:5 K.005 Method:Bed Scales Exam General appearance: alert, active, awake, no acute distress, sitting on bedside taking her meds Cardiovascular: regular rate & rhythm, rhythm strips showing mostly paced rhythm with some controlled At Fib Respiratory: clear to auscultation (bilat anterior and posterior) ABD: non-distended, soft, no tenderness, bowel sounds present Extremities: no peripheral edema, no calf tenderness Neuro: alert, oriented, speech clear Assessment/Plan Problem List 1. Precordial chest pain 2. Hypokalemia 3. Essential hypertension Status: Chronic 4. Hypothyroidism Status: Chronic 5. Anxiety Status: Chronic 6. Mechanical heart valve present Status: Chronic 7. Chronic atrial fibrillation 8. Palpitation 9. Type 2 diabetes mellitus 10. Presence of permanent cardiac pacemaker 11. Environmental allergies 12. Mechanical heart valve present Status: Chronic 13. [id number] deficiency carrier Patient condition Improving Plan: Stress test and ECHO today This inpt stay is expected to cross 2 MNs from start of care Yes (Annamarie Saeed APRN) Subjective Date 08/18/16 Time 0818 Assessment/Plan Problem List 1. Precordial chest pain 2. Hypokalemia 3. Essential hypertension Status: Chronic 4. Hypothyroidism Status: Chronic 5. Anxiety Status: Chronic 6. Mechanical heart valve present Status: Chronic 7. Chronic atrial fibrillation 8. Palpitation 9. Type 2 diabetes mellitus 10. Presence of permanent cardiac pacemaker 11. Environmental allergies 12. Mechanical heart valve present Status: Chronic 13. Ydsao-[id number] deficiency carrier Plan: Concur with above assessment and plan. SHe was scheduled for outpt EGD and colonoscopy for tomorrow but likely need to reschedule. (Summer Concepcion MD) at 0816 at 0819
--- NOTE | 2016-08-18 08:17 | CONSULT NOTE ---
Standard Demographics Patient Demo Date of Consultation: 08/18/16 Referring Provider: Joseluis Concepcion MD Reason for Consultation: Chest pain, palpitations PRIMARY DIAGNOSIS: CHEST PAIN Problem list Problem list: 1. Mechanical Aortic and Mitral Valves, 2013, secondary to history of rheumatic heart disease. A. Chronic coumadin therapy 2. DM, Type 2, diagnosed 03/2016 3. Chronic a. fib 4. Hypertension 5. Hypothyroidism with history of partial thyroidectomy 6. History of asthma History of present illness: History of present illness: 56-year-old white female with aortic and mitral mechanical valves, chronic atrial fibrillation and recently diagnosed diabetes mellitus type 2 was admitted for recurrent episodes of palpitations and chest pains. Recently saw the patient last week in the office and increased her beta dominic which she states did not seem to help much. She does relate chest discomfort with deep breathing and palpation. Pacemaker interrogation last week in the office did reveal some brief elevated ventricular rates without higher grade arrhythmias. Recent Holter monitor showed her chronic atrial fibrillation without prolonged elevated ventricular rates. Patient was admitted over the weekend, serial cardiac enzymes have returned normal and telemetry has not revealed any significant arrhythmias. Cardiology consulted for evaluation and recommendations. Past Medical History: General: Hypertension Yes CVA No Seizures No TB No COPD No Asthma Yes Diabetes Yes Insulin Dependent No Insulin Pump No Angina Yes VT No Hyperlipidemia No Urinary Yes Cancer No Rheumatic H.D. Yes Ulcers No MRSA Yes GB Disease No Additional hx Chronic AFIB Past Surgical HX: Previous Surgery?Y Tubal Ligation MITRAL VALVE X2 Eye Colon HERNIA REPAIR 08/06/04 HEART SURGERY-ABLATION HERNIA REPAIR CHOLECYSTECTOMY PARTIAL THYROIDECTOMY NASAL SURGERY PACEMAKER PLACEMENT Allergies Coded Allergies: latex (Mild, I-HIVES 02/22/16) Home medications: Active Scripts Montelukast Sodium (Singulair) 10 MG PO QHS #30 TAB Prov: 03/30/16 DIGOXIN (Digox) 0.125 MG PO DAILY #30 TAB Prov: 02/23/16 Reported Medications Fluticasone Propionate (Flonase 50 Mcg Nasal [place]) 1 SPRAY NA DAILY #1 BOT Loratadine (Claritin 10MG) 10 MG PO DAILY BUDESONIDE/FORMOTEROL FUMARATE (Symbicort 160-4.5 Mcg Inhaler) 2 PUFFS IH BID #1 INH Calcium Citrate 600 MG PO DAILY Multivit-Min/FA/Lycopene/Lut (Centrum Silver Tablet) 500 MG PO DAILY Pantoprazole Sodium (Pantoprazole 40MG) 40 MG PO DAILY WARFARIN SOD (Coumadin) 7.5 MG PO SuTuThSa Furosemide (Lasix 40MG) 40 MG PO BID Ferrous Sulfate (Ferrous Sulfate 325MG) 325 MG OR DAILY ALBUTEROL (Proventil Hfa Inhaler) 2 PUFF IH Q6HP PRN BREATHING #1 PUFF Levothyroxine Sodium 0.125 MG PO DAILY #90 TAB MULTIVIT,THER IRON,CA,FA & MIN (Sm Therapeutic M Tablet) 1 TAB PO DAILY Potassium Chloride (Klor-Con M10) 10 MEQ PO DAILY #90 TER Clonazepam (Klonopin 0.5MG) 0.25 MG PO BID WARFARIN SOD (Coumadin) 5 MG PO MWF Gabapentin (Gabapentin 100MG) 100 MG PO QHS Metformin HCl (Metformin) 500 MG PO DAILY ASPIRIN (Aspirin) 81 MG PO DAILY Atenolol (Atenolol) 25 MG PO BID Current Medications: Current Medications Clonazepam 0 .STK-MED ONE .ROUTE (DC) Morphine Sulfate 0 .STK-MED ONE .ROUTE (DC) Gabapentin 100 MG QHS PO Montelukast Sodium 10 MG QHS PO Acetaminophen 0 .STK-MED ONE PO (DC) Clonazepam 0 .STK-MED ONE .ROUTE (DC) Acetaminophen 0 .STK-MED ONE PO (DC) Clonazepam 0 .STK-MED ONE .ROUTE (DC) Aspirin 81 MG DAILY PO Atenolol 25 MG BID PO Clonazepam 0.25 MG BID PO Digoxin 0.125 MG DAILY PO Enoxaparin Sodium 60 MG BID SC Ferrous Sulfate 325 MG DAILY PO Fluticasone Propionate 1 SPR DAILY NA Furosemide 40 MG BID PO Levothyroxine Sodium 0.125 MG DAILY PO Loratadine 10 MG DAILY PO Metformin HCl 500 MG DAILY PO Pantoprazole Sodium 40 MG DAILY PO Potassium Chloride 10 MEQ BID PO Acetaminophen 1,000 MG Q6HP PRN PO Albuterol 2 PUFFS Q6HP PRN IH Miscellaneous 1 UNIT ONCE ONE XX (DC) Diagnostic Test (Pha) 1 EACH W/MEALS&HS FS Insulin Human [rDNA origin] SEE ADMIN CRITERIA FOR MEDIUM INTENSITY W/MEALS&HS SC Morphine Sulfate 2 MG Q2HP PRN IV Nicotine 21 MG DAILYP PRN TD Ondansetron HCl 4 MG Q6HP PRN IV Sodium Chloride 10 ML PRN PRN IV Nitroglycerin 0.4 MG [id number] PRN SL Sodium Chloride 10 ML PRN PRN IV (DC) Immunization HX DT/Tetanus > 10 Years Flu Refused Pneumonia RECEIVED IN PAST TB Test in last year No Family history Family HX Family Hx Insignificant No Diabetes Yes CAD Yes Hypertension Yes Hyperlipidemia No Cancer Yes TB No Social Hx: Smoking HX Tobacco No Type N/A Packs/day N/A Are you/the child exposed to second-hand smoke: No Alcohol Alcohol: No Hx of Drug Use Drug Use? No Review of systems: Constitutional weakness. Respiratory SOB with excertion. Cardiovascular see HPI, chest pain, palpitations Gastrointestinal/Abdominal No no symptoms reported Genitourinary No: no symptoms reported. Musculoskeletal No: no symptoms reported. Neurological No: no symptoms reported. Exam: Admission Vital Signs: 1ST Vital Signs Result Date Time Pulse Ox 96 08/16 1956 B/P 125/69 08/16 1956 Temp 98.6 08/16 1956 Pulse 70 08/16 1956 Resp 20 08/16 1956 O2 Delivery ROOM AIR 08/17 0024 O2 Flow Rate 2 08/18 0604 Last Vital Signs: Vital Signs Result Date Time O2 Flow Rate 2 08/18 0604 Pulse Ox 92 08/18 0604 O2 Delivery ROOM AIR 05 0550 B/P 104/37 08/18 0430 Temp 97.8 08/18 0430 Pulse 71 08/18 0430 Resp 18 08/18 0430 Exam General appearance: alert, awake, no acute distress Neck: no carotid bruit, no JVD Cardiovascular: regular rate & rhythm, no murmur, prosthetic valve click Respiratory: clear to auscultation, good air movement ABD: soft, no tenderness Extremities: moves all, no peripheral edema Neuro: alert, intact, oriented, speech clear Laboratory data: Laboratory Tests 08/18/16 0600: Sodium 144, Potassium 3.8, Chloride 105, Carbon Dioxide 31, BUN 15, Creatinine 0.7, Estimated Creat Clear 90, Estimated GFR (MDRD) 86, Glucose 106, Calcium 8.4 L 08/17/16 2005: POC Glucose 124 H 08/17/16 1702: POC Glucose 123 H 08/17/16 1147: POC Glucose 137 H 08/17/16 0655: TSH 6.23 H, Free T4 Index 7.9, Thyroxine (T4) 9.1, T3 Uptake 35 08/17/16 0655: Creatine Kinase 68, CK-MB (CK-2) Rel Index 2.1, CK and CKMB Interp 1.4, Troponin I 0.03, WBC 6.2, RBC 3.91 L, Hgb 13.0, Hct 38.4, MCV 98.1 H, RDW 13.7, Plt Count 200, MPV 6.7 L, Gran % 54.8, Gran # 3.4, Lymphocytes % 32.9, Monocytes % 7.9, Eosinophils % 3.8, Basophils % 0.6, Lymphocytes # 2.0, Monocytes # 0.5, Eosinophils # 0.2, Basophils # 0.0, PUBS MCHC 33.9, MCH 33.2 H, Digoxin 1.04 L 08/17/16 0619: POC Glucose 96 08/17/16 0405: Creatine Kinase 69, CK-MB (CK-2) Rel Index 2.3, CK and CKMB Interp 1.6, Troponin I 0.03 08/17/16 0120: Creatine Kinase 102, CK-MB (CK-2) Rel Index 1.7, CK and CKMB Interp 1.7, Troponin I 0.03 08/16/16 2100: Stool Occult Blood NEGATIVE 08/16/162024: Sodium 145, Potassium 3.3 L, Chloride 108 H, Carbon Dioxide 31, BUN 13, Creatinine 0.9, Estimated Creat Clear 69, Estimated GFR (MDRD) 64, Glucose 132 H, Calcium 8.8, Total Bilirubin 0.4, AST 41 H, ALT 53, Alkaline Phosphatase 87, Creatine Kinase 107, CK-MB (CK-2) Rel Index 2.1, CK and CKMB Interp 2.2, Troponin I 0.02, Total Protein 7.3, Albumin 3.7, Globulin 3.6 H, Albumin/ Globulin Ratio 1.0 L, PT 10.9, INR 1.02, APTT 31.3, WBC 6.6, RBC 4.00 L, Hgb 12.9, Hct 38.7, MCV 96.7, RDW 13.8, Plt Count 202, MPV 6.7 L, Gran % 55.3, Gran # 3.7, Lymphocytes % 32.6, Monocytes % 7.9, Eosinophils % 3.3, Basophils % 0.9, Lymphocytes # 2.2, Monocytes # 0.5, Eosinophils # 0.2, Basophils # 0.1, PUBS MCHC 33.5, MCH 32.4 H Plan: Assessment: 1. Palpitations and chest pain, normal troponins 3. 2. Chronic atrial fibrillation 3. Mechanical mitral and aortic valves. 4. Hypertension 5. Diabetes mellitus Recommendations: 1. Will obtain Lexiscan Myoview to evaluate for coronary artery disease in this diabetic patient. 2. Will obtain echocardiogram to evaluate mechanical valves and LEFT ventricular ejection fraction. 3. Continue to monitor on telemetry. 4. Continue medical therapy. at 1357
--- NOTE | 2016-08-18 14:00 | RADIOLOGY REPORT PS360 ---
History and Indications: Coronary artery disease, diabetes, chest pain, status post aortic and mitral valve replacement Procedure: . Patient received 0.4 mg of Lexiscan, resting heart rate was 70 bpm resting blood pressure 120/59 with Lexiscan maximum heart rate achieved was 78 bpm which is less than 85% of the maximum predicted heart rate and the blood pressure was 82/37, with Lexiscan patient complained of mild shortness of breath and stomach discomfort. Electrocardiogram: Resting electrocardiogram showed electronically paced ventricular rhythm, underlying rhythm is atrial fibrillation, with Lexiscan there is [place] beats were seen, less than 1.[address] segment depression noted from the baseline EKG. The EKG portion of the Lexiscan is nondiagnostic secondary to paced as well as abnormal baseline EKG. Cardiac stress and resting SPECT images: Cardiac stress and resting SPECT images were obtained using technetium 99 Myoview 38.9 mCi at rest, 27.8 mCi at stress, gated SPECT further analysis of segmental wall motion and calculation of the ejection fraction was also done. Cardiac stress and the suspect images show mild decreased tracer activity in the anterior wall with the perfusion of the apex being normal and normal contractility on the gated SPECT is likely secondary to soft tissue attenuation from the breast, no reversible ischemia seen. Computer derived ejection fraction 47% with no obvious regional wall motion abnormality, right ventricle is mildly enlarged with normal contractility. Conclusion: 1. The EKG portion of the Lexiscan is nondiagnostic. 2. No obvious scintigraphic evidence of reversible ischemia seen, computer derived ejection fraction is 47% with no obvious regional wall motion abnormality, right ventricle is mildly enlarged with normal contractility.
--- NOTE | 2016-08-18 15:12 | RADIOLOGY REPORT PS360 ---
PROCEDURE: 2-D M-mode and color Doppler study INDICATIONS FOR THE TEST: Chest painX COPD Heart MurmurX Tobacco Smoking PalpitationsX Fatigue Syncope Edema HypertensionXDiabetes Mellitus Rheumatic Fever SOB IYER Obesity Hyperlipidemia Family History HD Additional History CHRONIC AF MECH AV MV PATIENT INFORMATION HEIGHT: 61 WEIGHT:143 GENDER: Female B/P:125/69 2-D/M-MODE INTERPRETATION: 2-D MEASUREMENTS OBSERVED VALUES IN CMS Right Ventricular Dimension (RVDd) 3.0 Interventricular Septum (Thickness)(IVsd) 1.0 Left Ventricular Internal Dimensions(LVIDd) 5.0 Left Ventricular Posterior Wall (Thickness)(LVPWd) .9 Aortic Root 3.2 Aortic Cusp Separation 1.0 Left Atrial Dimensions (LAD) 5.0 2D 1. Technically difficult study because of the patient's factor and poor acoustic windows. 2. The left atrium is moderately enlarged, left ventricle is normal size, there is no concentric left ventricular hypertrophy, visually estimated ejection fraction 50% with no obvious regional wall motion abnormality. Endocardial surfaces are poorly visualized. 3. The right atrium is moderately enlarged, the right ventricle is mildly dilated with normal contractility, there is a pacemaker lead seen in the right ventricle. 4. There is mechanical prosthetic valve noted in the aortic position, the aortic root is not well visualized. 5. There is mechanical prosthetic valve noted in the mitral position, there are echo lucencies around the left atrium, raising the concern is for presence of pseudoaneurysm. 6. The tricuspid valve leaflets are minimally thickened. 7. The pulmonic valve is not well visualized. 8. There is a small circumferential pericardial effusion noted DOPPLER INTERROGATION: 1. The aortic outflow velocities minimally increased which is within physiological range for this type of mechanical valve, there is trace physiological aortic insufficiency seen. 2. The mitral inflow velocity within normal range, across the prosthetic valve, there is no mitral inflow obstruction, there is trace mitral regurgitation. 3. There is mild tricuspid regurgitation noted tricuspid regurgitant jet velocity insufficient for calculation of the right ventricular systolic pressure. CONCLUSION: 1. Moderate biatrial enlargement, normal left ventricular size, visually estimated ejection fraction 50% as described above. 2. Normal functioning mechanical prosthetic valve in the aortic and mitral position. 3. Abnormal echo lucency seen along the left atrium, rule out possibility of pseudoaneurysm, a CT scan of the chest with contrast is recommended. 4. Small circumferential pericardial effusion noted.
--- NOTE | 2016-08-18 17:16 | RADIOLOGY REPORT PS360 ---
CTA-CHEST HISTORY: Chest pain CHEST PAIN,EVAL;UATE AORTIC ROOT ANEURYSM/PSEUDOANEURYSM ORDERING PHYSICIAN: Smumer Concepcion MD PATIENT AGE: 56 years TECHNIQUE: Helical acquisition obtained following the bolus administration of 60 mL of Isovue 370 followed by a saline bolus. Axial, sagittal, and coronal reformatted images are generated and reviewed. COMPARISON: None FINDINGS: There has been prior median sternotomy with aortic valve and mitral valve replacement. There is mild dilatation of the aortic root measuring up to 4.4 cm in maximum AP dimension and 4.2 cm in maximum transverse dimension. There has been prior CABG. There is mild cardiomegaly with mild prominence of the left ventricle and left atrium.. No mediastinal or hilar mass or adenopathy is evident. There are minimal atelectatic changes in the lung bases. Upper abdominal images are unremarkable. No acute bony anomalies. IMPRESSION: 1. Mild dilatation of the aortic root measuring up to 4.4 cm AP and 4.2 cm transverse. 2. No evidence of pseudoaneurysm. No dissection. No central pulmonary embolus. 3. Scattered mild atelectatic or fibrotic changes. 4. Cardiomegaly
[2016-08-19 00:30] VITALS: BP 105/50
[2016-08-19 04:30] VITALS: BP 115/55
[2016-08-19 07:22] VITALS: BP 116/64
--- NOTE | 2016-08-19 07:39 | ACUTE CARE PROGRESS NOTE (QUA) ---
Progress Notes Subjective Date 08/19/16 Time 0730 Note 56 yo WF at bedside eating breakfast in NAD. States she is feeling better and seems to realize that her chest pain correlates to the palpitations she is feeling. Rhythm strips show only combination of a. fib with controlled ventricular response and intermittent ventricular pacing. No episodes of ventricular tachycardia or higher grade arrhythmias. Objective Findings Last VS-Temp:98.0 B/P:116/64 Pulse:70 Resp:20 SaO2:95 ROOM AIR Last weight lbs:141 oz:3 K.042 Method:Bed Scales Exam General appearance: alert, awake, no acute distress Cardiovascular: regular rate & rhythm, prosthetic valve click Respiratory: clear to auscultation Reviewed: medications, vital signs, lab results Assessment/Plan Problem List 1. Precordial chest pain 2. Hypokalemia 3. Essential hypertension Status: Chronic 4. Hypothyroidism Status: Chronic 5. Anxiety Status: Chronic 6. Mechanical heart valve present Status: Chronic 7. Chronic atrial fibrillation 8. Palpitation 9. Type 2 diabetes mellitus 10. Presence of permanent cardiac pacemaker 11. Environmental allergies 12. Mechanical heart valve present Status: Chronic 13. 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 EF mildly reduced at 47%. Echo shows EF about 50% with normal function of prosthetic valves. Concern regarding echo lucency noted. CT of chest did not show a pseudoaneurysm. Mild aortic root dilation noted. Continue current atenolol 25 mg BID dosing along with lasix, aspirin and digoxin. Ok for discharge home. Pt will follow up with us in 2 wks. This inpt stay is expected to cross 2 MNs from start of care Yes at 0801
[2016-08-19 08:09] VITALS: BP 116/64
[2016-08-19 08:43] VITALS: BP 116/64
--- NOTE | 2016-08-19 08:45 | ACUTE CARE PROGRESS NOTE (QUA) ---
Progress Notes Subjective Date 08/19/16 Time 0841 Note Rested better. Chest pain has resolved. Still with some palpitations likely related to pacer capturing. Back and hip pain resolved. Objective Findings Last VS-Temp:98.0 B/P:116/64 Pulse:70 Resp:20 SaO2:95 ROOM AIR Last weight lbs:141 oz:3 K.042 Method:Bed Scales Exam General appearance: alert, no acute distress Cardiovascular: regularly irregular, with gr 2-3/6 syst murmur Respiratory: clear to auscultation, no chest wall tenderness Assessment/Plan Problem List 1. Precordial chest pain 2. Hypokalemia 3. Essential hypertension Status: Chronic 4. Hypothyroidism Status: Chronic 5. Anxiety Status: Chronic 6. Mechanical heart valve present Status: Chronic 7. Chronic atrial fibrillation 8. Palpitation 9. Type 2 diabetes mellitus 10. Presence of permanent cardiac pacemaker 11. Environmental allergies 12. Mechanical heart valve present Status: Chronic 13. Qdqcs-[id number] deficiency carrier Plan: Discharge home and resume home meds including warfarin. EGD and c-scope have been postponed for now. F/u in 2 days and will reschedule GI tests. This inpt stay is expected to cross 2 MNs from start of care Yes at 0845
--- NOTE | 2016-08-22 14:10 | DISCHARGE SUMMARY STANDARD ---
Discharge Summary ([facility]2) Date of admission: 08/17/16 Date of discharge: 08/19/16 Problem List: 1. Precordial chest pain 2. Hypokalemia 3. Essential hypertension 4. Hypothyroidism 5. Anxiety 6. Mechanical heart valve present 7. Chronic atrial fibrillation 8. Palpitation 9. Type 2 diabetes mellitus 10. Presence of permanent cardiac pacemaker 11. Environmental allergies 12. Mechanical heart valve present 13. Bwgiu-4-mkiunhvapsm deficiency carrier History of present illness: Ms Bo is a 56-year-old white female with aortic and mitral mechanical valves, chronic atrial fibrillation and recently diagnosed diabetes mellitus type 2 who was admitted for recurrent episodes of palpitations and chest pains. She was seen in the office 1 week prior and her beta dominic was increases which she stated did not seem to help much. She did relate chest discomfort with deep breathing and palpation. Pacemaker interrogation last week in the office did reveal some brief elevated ventricular rates without higher grade arrhythmias. Recent Holter monitor showed her chronic atrial fibrillation without prolonged elevated ventricular rates. Serial cardiac enzymes returned normal and telemetry did not reveal any significant arrhythmias. Cardiology consulted for evaluation and recommendations. Ms. Bo is a 56-year-old white female with a history of chronic atrial fibrillation, sick sinus syndrome status post permanent pacemaker, valvular heart disease status post aortic and mitral valve replacement, hypertension, hypothyroidism, and type 2 diabetes mellitus. 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 Cisneros and Dr. Mendoza. Over the past week she has been experiencing episodes of palpitations with rapid heartbeat and intermittent chest pain and diaphoresis. This is usually brought on with exertion. She was seen in the office on 08/08/16 with the complaints. Holter monitor at that time showed no significant dysrhythmias aside from her chronic atrial fibrillation. Her chest pain was worse yesterday and she contacted Dr. Donald filler leaf cutter long and he advised her to go to the emergency room. She is also reported dark stools over the past couple of weeks. Her hemoglobin has remained stable. She does take an iron supplement. She is scheduled for EGD and colonoscopy by Dr. Morrow on Thursday. On evaluation in the emergency room, her cardiac enzymes were normal. CBC again showed a stable hemoglobin. Electrolytes were remarkable for slightly decreased potassium. She continued to complain of 10 out 10 chest pain in the emergency room despite being given morphine therefore was admitted for further evaluation and observation. This morning, her main complaint is extreme fatigue. Still has chest pain rated 5/10 but does not exhibit physical signs of pain. She still complains of palpitations and her object oriented developer shows only controlled atrial fibrillation. Exam on admission: 1ST Vital Signs Result Date Time Pulse Ox 96 08/16 1956 B/P 125/69 08/16 1956 Temp 98.6 08/16 1956 Pulse 70 08/16 1956 Resp 20 08/16 1956 O2 Delivery ROOM AIR 08/17 0024 Exam: General appearance: alert, no acute distress, flat affect Eyes: anicteric, conjunctiva clear, EOM's w/normal ROM ENT: mucous membranes moist, pharynx normal, teeth/gums normal, tympanic membranes normal Neck: no carotid bruit, no thyromegaly Cardiovascular: irregularly irregular, Gr 3/6 syst murmur Respiratory: clear to auscultation, tenderness to palpation over sternum ABD: non-distended, normal bowel sounds, soft, no tenderness Extremities: no peripheral edema Musculoskeletal: equal muscle strength, motor intact Skin: dry, normal color, warm Neuro: alert, speech clear, no focal deficit Hospital Course: Cardiac enzymes were negative x3. Chest pain was felt to be atypical. Cardiology was consulted because of her extensive cardiac history. Lexiscan Myoview was completed to evaluate for CAD and was negative for ischemia. With ECHO EF was mildly reduced at 47% with normal function of prosthetic valves. CT of the chest did not show any pseudoaneruysm. Chest pain did finally resolve. She continued to feel palpitations. These were felt to be related to pacer capturing. She did have also back and hip pain which resolved before discharge. ON 08/19/16 she was stable to be discharged to home. Laboratory data this visit: 08/18/16 0600: Sodium 144, Potassium 3.8, Chloride 105, Carbon Dioxide 31, BUN 15, Creatinine 0.7, Estimated Creat Clear 90, Estimated GFR (MDRD) 86, Glucose 106, Calcium 8.4 L 08/17/16 0655: Creatine Kinase 68, CK-MB (CK-2) Rel Index 2.1, CK and CKMB Interp 1.4, Troponin I 0.03, WBC 6.2, RBC 3.91 L, Hgb 13.0, Hct 38.4, MCV 98.1 H, RDW 13.7, Plt Count 200, MPV 6.7 L, Gran % 54.8, Gran # 3.4, Lymphocytes % 32.9, Monocytes % 7.9, Eosinophils % 3.8, Basophils % 0.6, Lymphocytes # 2.0, Monocytes # 0.5, Eosinophils # 0.2, Basophils # 0.0, PUBS MCHC 33.9, MCH 33.2 H 08/17/16 0619: POC Glucose 96 08/17/16 0405: Creatine Kinase 69, CK-MB (CK-2) Rel Index 2.3, CK and CKMB Interp 1.6, Troponin I 0.03 08/17/16 0120: Creatine Kinase 102, CK-MB (CK-2) Rel Index 1.7, CK and CKMB Interp 1.7, Troponin I 0.03 08/16/16 2100: Stool Occult Blood NEGATIVE 08/16/162024: Sodium 145, Potassium 3.3 L, Chloride 108 H, Carbon Dioxide 31, BUN 13, Creatinine 0.9, Estimated Creat Clear 69, Estimated GFR (MDRD) 64, Glucose 132 H, Calcium 8.8, Total Bilirubin 0.4, AST 41 H, ALT 53, Alkaline Phosphatase 87, Creatine Kinase 107, CK-MB (CK-2) Rel Index 2.1, CK and CKMB Interp 2.2, Troponin I 0.02, Total Protein 7.3, Albumin 3.7, Globulin 3.6 H, Albumin/ Globulin Ratio 1.0 L, PT 10.9, INR 1.02, APTT 31.3, WBC 6.6, RBC 4.00 L, Hgb 12.9, Hct 38.7, MCV 96.7, RDW 13.8, Plt Count 202, MPV 6.7 L, Gran % 55.3, Gran # 3.7, Lymphocytes % 32.6, Monocytes % 7.9, Eosinophils % 3.3, Basophils % 0.9, Lymphocytes # 2.2, Monocytes # 0.5, Eosinophils # 0.2, Basophils # 0.1, PUBS MCHC 33.5, MCH 32.4 H Imagin08/16/16 CXR-----IMPRESSION: Stable chest. Nothing definitely acute.. Prominent cardiomegaly with pacemaker. Sternotomy with valve replacements Generous pulmonary vascularity but no additional acute CHF features 08/18/16 CT of chest--IMPRESSION: 1. Mild dilatation of the aortic root measuring up to 4.4 cm AP and 4.2 cm transverse. 2. No evidence of pseudoaneurysm. No dissection. No central pulmonary embolus. 3. Scattered mild atelectatic or fibrotic changes. 4. Cardiomegaly 08/18/16 ECHO---CONCLUSION: 1. Moderate biatrial enlargement, normal left ventricular size, visually estimated ejection fraction 50% as described above. 2. Normal functioning mechanical prosthetic valve in the aortic and mitral position. 3. Abnormal echo lucency seen along the left atrium, rule out possibility of pseudoaneurysm, a CT scan of the chest with contrast is recommended. 4. Small circumferential pericardial effusion noted. 08/18/16 Lexiscan stress Conclusion: 1. The EKG portion of the Lexiscan is nondiagnostic. 2. No obvious scintigraphic evidence of reversible ischemia seen, computer derived ejection fraction is 47% with no obvious regional wall motion abnormality, right ventricle is mildly enlarged with normal contractility. Discharge medications: Continue taking these medications: Ferrous Sulfate (Ferrous Sulfate 325MG) 325 MG TABLET 325 MILLIGRAM BY MOUTH DAILY ALBUTEROL (Proventil Hfa Inhaler) 90 MCG/PUFF INH 2 PUFF INHALATION EVERY 6 HOURS NEEDED as needed for BREATHING Qty = 1 Levothyroxine Sodium (Levothyroxine Sodium) 125 MCG TABLET 0.125 MILLIGRAM ORAL DAILY Qty = 90 MULTIVIT,THER IRON,CA,FA & MIN (Sm Therapeutic M Tablet) 1 EACH TABLET 1 TABLET ORAL DAILY Potassium Chloride (Klor-Con M10) 10 MEQ TAB.ER.PRT 10 Milliequivalent ORAL DAILY Qty = 90 WARFARIN SOD (Coumadin) 5 MG TABLET 7.5 MILLIGRAM ORAL SuTuThSa Instructions: PT TAKES 5MG QOD Fluticasone Propionate (Flonase 50 Mcg Nasal [place]) 16 GM SPRAY.SUSP 1 SPRAY Nasal DAILY Qty = 1 Clonazepam (Klonopin 0.5MG) 0.5 MG TABLET 0.25 MILLIGRAM ORAL TWICE A DAY Instructions: 1/2 TAB BID SOMETIMES WHOLE TABLET BID Loratadine (Claritin 10MG) 10 MG TABLET 10 MILLIGRAM ORAL DAILY BUDESONIDE/FORMOTEROL FUMARATE (Symbicort 160-4.5 Mcg Inhaler) 10.2 GM HFA.AER.AD 2 PUFFS INHALATION TWICE A DAY Qty = 1 WARFARIN SOD (Coumadin) 2.5 MG TABLET 5 MILLIGRAM ORAL EVERY THU, THU, AND THURSDAY Instructions: TAKES QOD M Calcium Citrate (Calcium Citrate) 200 MG TABLET 600 MILLIGRAM ORAL DAILY Multivit-Min/FA/Lycopene/Lut (Centrum Silver Tablet) 1 EACH TABLET 500 MILLIGRAM ORAL DAILY Pantoprazole Sodium (Pantoprazole 40MG) 40 MG TABLET.DR 40 MILLIGRAM ORAL DAILY ASPIRIN (Aspirin) 81 MG TAB.CHEW 81 MILLIGRAM ORAL DAILY Gabapentin (Gabapentin 100MG) 100 MG CAPSULE 100 MILLIGRAM ORAL AT BEDTIME NIGHTLY Metformin HCl (Metformin) 500 MG TABLET 500 MILLIGRAM ORAL DAILY Furosemide (Lasix 40MG) 40 MG TABLET 40 MILLIGRAM ORAL TWICE A DAY DIGOXIN (Digox) 125 MCG TABLET 0.125 MILLIGRAM ORAL DAILY Qty = 30 Montelukast Sodium (Singulair) 10 MG TABLET 10 MILLIGRAM ORAL AT BEDTIME NIGHTLY Qty = 30 Atenolol (Atenolol) 25 MG TABLET 25 MILLIGRAM ORAL TWICE A DAY Disposition: Discharge to home in stable and satisfactory condition. Meds as per reconciliation sheet. To continue with same diabetic diet and activity. Follow-up with Dr. Concepcion in [place] in 2 days at 1632
== END 2016-08-19 10:20 | disposition home or self-care (01) ==
LOC: ER 19:56 → 2ND 23:20 → ER 23:20 → 2ND 08-17 00:17
PROVIDERS: Emergency Medicine; Family Medicine
DX: R07.2 Precordial pain (principal); E87.6 Hypokalemia; I10 Essential (primary) hypertension; I48.2 Chronic atrial fibrillation; E11.9 Type 2 diabetes mellitus without complications; I49.5 Sick sinus syndrome; Z95.2 Presence of prosthetic heart valve; Z79.01 Long term (current) use of anticoagulants
CPT/HCPCS: A9502; G0378; J2405; J2785; Q9967

== ENCOUNTER 2016-12-30 17:14 | Emergency (ER) | payer MEDICAID ==
[~2016-12-30] VITALS: Ht 154.9 cm; Wt 68.9 kg
[~2016-12-30 17:14] MED LIST changes: +CEPHALEXIN500 MG PO; +KEFLEX250 M1 PO; +LANOXIN 0.120.125 MG PO; +MIRALAX(PO17 GM/1 PA PO; +OMNICEF 300 MG300 MG PO; +SALINE NASAL M126 ML NS; +SPIRIVA18 MCG IH; +SYMBICORT 10.10.2 M1 IH; +TICALAST NASAL1 EACH NS; +TRAMADOL 50MG T50 M1 PO; +WARFARIN SOD5 MG PO; +WARFARIN SODIU7.5 MG PO
--- NOTE | 2016-12-30 17:30 | Emergency Room Report ---
See Addendum History of Present Illness Time Seen by [id number] Presenting Problem in Triage Pt arrived:Walked Presenting Problem:PT C/O CHEST PAIN AND ABD PAIN THAT STARTED YESTERDAY. 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 N Clinical Suspician of Infection? N Mental Status: 1 - Regular (Normal Baseline) Sepsis Risk:Low Sepsis Risk Have you (or family members/close friends) recently traveled outside the [place]? N If Yes, where/when: Have you had exposure to infectious disease within the past month? N TB? Other? Specify: 56 years old white female status post aortic and mitral valve replacement on Coumadin therapy. She has a pacemaker on demand. I saw her 3 month ago for right sided abdominal pain and had negative CT scan. Yesterday, she has been experiencing intermittent chest pain. She did not have a bowel movement for 2 days and today she developed abdominal pain and distention she felt the pain radiating to the chest so she came to the ER for evaluation. She feels nauseous without vomiting hematemesis, coffee-ground emesis or melanotic stool. She denies shortness of breath or palpitations. Fever chills or dizziness. Headache or neck pain. Ms. Bo Had a negative nuclear stress test and normal echo in 08/18/2016. Source patient, RN notes reviewed (friend), old records Exam Limitations no limitations ALLERGIES Coded Allergies: latex (Mild, I-HIVES 10/19/16) ([facility]) Home Medications Active Scripts Montelukast Sodium (Singulair) 10 MG PO QHS #30 TAB Prov: 03/30/16 Reported Medications Calcium Citrate 600 MG PO DAILY Multivit-Min/FA/Lycopene/Lut (Centrum Silver Tablet) 500 MG PO DAILY Pantoprazole Sodium (Pantoprazole 40MG) 40 MG PO DAILY WARFARIN SOD (Warfarin 5MG) 7.5 MG PO We ALBUTEROL (Proventil Hfa Inhaler) 2 PUFF IH Q6HP PRN SHORTNESS OF AIR #1 PUFF Potassium Chloride (Klor-Con M10) 10 MEQ PO BID #90 TER Furosemide (Lasix 40MG) 40 MG PO DAILY Ondansetron (Zofran 4MG Odt) 4 MG PO Q6HP PRN NAUSEA AND VOMITING Tiotropium [place] (Spiriva) 1 PUFF IH DAILY WARFARIN SOD (Warfarin 7.5MG) 5 MG PO SuMoTuThFrSa Digoxin (Lanoxin 0.125MG) 0.125 MG PO DAILY #30 Ferrous Sulfate (Ferrous Sulfate 325MG) 325 MG OR DAILY Levothyroxine Sodium 0.125 MG PO DAILY #90 TAB Clonazepam (Klonopin 0.5MG) 0.25 MG PO BID Gabapentin (Gabapentin 100MG) 100 MG PO QHS Metformin HCl (Metformin) 500 MG PO DAILY Atenolol (Atenolol) 25 MG PO TID TRAMADOL HCL (Tramadol) 50 MG PO Q6HP PRN pain ASPIRIN (Aspirin) 81 MG PO DAILY (Di Chaney MD) History Medical History General CAD? Yes Angina: Yes [place]: No Hypertension? Yes Hyperlipidemia? No CHF? Yes DVT? No PE? No COPD? No Asthma? Yes Anemia? No GERD? Yes Gastric ulcers? No GI Bleed? No Hernia? Yes Thyroid Problems? Yes Hypothyroidism? Yes CVA? No Seizures? No Diabetes? Yes Insulin Dependent: No Insulin Pump: No Home FSBS? No Renal Insuffiency? No End Stage Renal Disease? No UTI? Yes Stones? No BPH? No GB Disease: No Nephritic Syndrome? No Asplenia? No Hepatitis? No Sickle Cell Disease? No Arthritis? No Migraines? Yes Cataracts? No Glaucoma? No MRSA? Yes HIV? No TB? No Anxiety? Yes Depression? No Cancer? No More? 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 Respiratory no symptoms reported Cardiovascular see HPI, chest pain Gastrointestinal see HPI, abdominal pain Genitourinary no symptoms reported. Musculoskeletal no symptoms reported Skin no symptoms reported Psychiatric/Neurological no symptoms reported ([facility]ylee) Physical Exam Vital Signs Vital Signs Date Time Temp Pulse Resp B/P Pulse O2 O2 Flow FiO2 Ox Delivery Rate 12/30 2024 97.9 70 16 129/79 92 12/30 1824 74 20 141/78 92 12/30 1759 12 12/30 1715 97.9 75 12 149/78 92 - WBC >12,000 or <4,000 or 10% bands? 2 or more SIRS Criteria Met? B/P:149/78 MAP:101 Creatinine >2.0? UA output<0.5ml/kg/hr for 2 hrs? Platelet count >100,000? Lactate >2.0mmol/1? INR >1.2 or PTT > than 60 sec? Evidence of Organ Dysfunction? Provider documented clinical suspician of infection? N Sepsis Criteria Count: 0 Sepsis Risk: Low Sepsis Risk General Appearance normal appearance, WD/WN Eye Exam - bilateral eye normal exam, bilateral eye PERRL, bilateral eye EOMI Ear, Nose, Throat hearing grossly normal, normal ENT inspection Neck normal inspection, non-tender, supple, full range of motion Respiratory Status Yes: trachea midline, chest symmetrical, non tender chest. No: respiratory distress. Lung Sounds bilateral: normal breath sounds, lungs clear. 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 2 or more SIRS Criteria Met? B/P:129/79 MAP:101 Creatinine >2.0? UA output<0.5ml/kg/hr for 2 hrs? Platelet count >100,000? Lactate >2.0mmol/1? INR >1.2 or PTT > than 60 sec? Evidence of Organ Dysfunction? Provider documented clinical suspician of infection? N Sepsis Criteria Count: 0 Sepsis Risk: Low Sepsis Risk Strength 4 Upper Ext (L), 4 Upper Ext (R), 4 Lower Ext (L), 4 Lower Ext (R) ([facility]) Medical Decision Making LABS/Meds/Orders Pt receiving controlled substance in ED? No Results/Orders Laboratory Tests 12/30/161814: Magnesium 2.3 H 12/30/161814: Sodium 143, Potassium 3.6, Chloride 104, Carbon Dioxide 31, BUN 15, Creatinine 1.0, Estimated Creat Clear 67, Estimated GFR (MDRD) 57 L, Glucose 122 H, Calcium 8.6, Total Bilirubin 0.4, AST 26, ALT 29, Alkaline Phosphatase 81, Creatine Kinase 38, CK-MB (CK-2) Rel Index 1.3, CK and CKMB Interp < 0.5, Troponin I 0.02, Total Protein 7.6, Albumin 4.2, Globulin 3.4 H, Albumin/ Globulin Ratio 1.2, Amylase 39, Lipase 131, PT 16.2 H, INR 1.49 H, APTT 32.0, WBC 11.6 H, RBC 3.99 L, Hgb 12.5, Hct 38.9, MCV 97.5, RDW 14.0, Plt Count 252, MPV 8.1, Gran % 80.5 H, Gran # 9.3 H, Lymphocytes % 12.8, Monocytes % 5.3, Eosinophils % 1.2, Basophils % 0.2, Lymphocytes # 1.5, Monocytes # 0.6, Eosinophils # 0.1, Basophils # 0.0, PUBS MCHC 32.3, MCH 31.5 H, Digoxin 0.88 L 12/30/16 1725: Stool Occult Blood NEGATIVE Current Medication Orders Sig/Kelley Start time Last Medication Dose Route Stop Time Status Admin Morphine Sulfate 2 MG [id number] PRN 12/30 1800 AC IV Morphine Sulfate 2 MG ONCE ONE 12/30 1799 DC 12/30 IV 12/30 1801 1759 Ondansetron HCl 4 MG ONCE ONE 12/30 1800 DC 12/30 IV 12/30 1801 1759 Morphine Sulfate 0 .STK-MED ONE 12/30 1755 DC .ROUTE Ondansetron HCl 0 .STK-MED ONE 12/30 1755 DC .ROUTE Diatrizoate Meglum/ 0 .STK-MED ONE 12/30 1735 DC Diatrizoate Sod .ROUTE Diatrizoate Meglum/ 30 ML ONCE ONE 12/30 1730 DC 12/30 Diatrizoate Sod PO 12/30 1731 1739 Sodium Chloride 10 ML PRN PRN 12/30 1730 AC IV 12/31 1718 Orders Procedure Date/time Status DIET-NOTHING BY MOUTH 12/[address] ABD & PELVIS W/O CONTRAST 12/30 1919 Active DIGOXIN 12/30 1749 Complete PARTIAL THROMBOPLASTIN TIME 12/30 1735 Complete PROTHROMBIN TIME 12/30 1735 Complete MAGNESIUM 12/30 1735 Complete STOOL OCCULT BLOOD 12/30 1730 Complete 12 LEAD EKG-ALBERT (INITIAL) 12/30 1719 Active ELECTROCARDIOGRAM REQUEST 12/[address] ABD/PELVIS REQ 12/30 1719 Complete IV SALINE LOCK 12/30 1719 Active LIPASE 12/30 1719 Complete CBC WITH AUTO DIFF 12/30 1719 Complete CARDIAC ENZYMES 12/30 1719 Complete CHEM 12 PROFILE 12/30 1719 Complete AMYLASE 12/30 1719 Complete CM/EKG CM/EKG EKG baseline atrial fibrillations with demand pacemaker with unifocal PVCs and left ventricular hypertrophy changes and ST and T-wave changes ischemia cannot be ruled out ([facility]) XRAY/CT/US XRAY/CT/US CT abdomen, pelvis CT interpretation by discussed w/radiologist Time results known: 2034 CT Results normal/NAD ([facility]) Departure Departure Time of Disposition 1732 Condition STABLE Additional Instructions The patient was medicated with Zofran and morphine, CT scan was pending. care was transferred to dr. Godinez pending CT scan and disposition. Dr. Gorman Discharge Counseling Counseled pt/family regarding diagnosis, test results, medications/RX, home care, follow up needs ED Critical Care Critical Care No If Critical Care minutes are documented, the time involved in the performance of seperately reportable procedures was not counted toward critical care time documented. I directly delivered medical care to this critically ill and/or injured patient. Timely evaluation and treatment was necessary to address the significant organ system(s) dysfunction present in this patient. (Kylee Gorman MD) Departure Disposition DC Home or Self Care(routine) Clinical Impression Primary Impression: Abdominal pain Qualifiers: Abdominal location: generalized Qualified Code: R10.84 - Generalized abdominal pain Secondary Impressions: Atypical chest pain, History of Coumadin therapy Referrals Summer Concepcion MD (Family) discussed with dr concepcion Prescriptions Current Visit Scripts Polyethylene Glycol 3350 (Miralax) 17 GM PO DAILY #30 PKT DISSOLVE IN 8 OZ BEVERAGE (Di Chaney MD) at 2014 at 2052
--- NOTE | 2016-12-30 17:30 | Emergency Room Report ---
See Addendum History of Present Illness Time Seen by [id number] Presenting Problem in Triage Pt arrived:Walked Presenting Problem:PT C/O CHEST PAIN AND ABD PAIN THAT STARTED YESTERDAY. 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 N Clinical Suspician of Infection? N Mental Status: 1 - Regular (Normal Baseline) Sepsis Risk:Low Sepsis Risk Have you (or family members/close friends) recently traveled outside the [place]? N If Yes, where/when: Have you had exposure to infectious disease within the past month? N TB? Other? Specify: 56 years old white female status post aortic and mitral valve replacement on Coumadin therapy. She has a pacemaker on demand. I saw her 3 month ago for right sided abdominal pain and had negative CT scan. Yesterday, she has been experiencing intermittent chest pain. She did not have a bowel movement for 2 days and today she developed abdominal pain and distention she felt the pain radiating to the chest so she came to the ER for evaluation. She feels nauseous without vomiting hematemesis, coffee-ground emesis or melanotic stool. She denies shortness of breath or palpitations. Fever chills or dizziness. Headache or neck pain. Ms. Bo Had a negative nuclear stress test and normal echo in 08/18/2016. Source patient, RN notes reviewed (friend), old records Exam Limitations no limitations ALLERGIES Coded Allergies: latex (Mild, I-HIVES 10/19/16) ([facility]) Home Medications Active Scripts Montelukast Sodium (Singulair) 10 MG PO QHS #30 TAB Prov: 03/30/16 Reported Medications Calcium Citrate 600 MG PO DAILY Multivit-Min/FA/Lycopene/Lut (Centrum Silver Tablet) 500 MG PO DAILY Pantoprazole Sodium (Pantoprazole 40MG) 40 MG PO DAILY WARFARIN SOD (Warfarin 5MG) 7.5 MG PO We ALBUTEROL (Proventil Hfa Inhaler) 2 PUFF IH Q6HP PRN SHORTNESS OF AIR #1 PUFF Potassium Chloride (Klor-Con M10) 10 MEQ PO BID #90 TER Furosemide (Lasix 40MG) 40 MG PO DAILY Ondansetron (Zofran 4MG Odt) 4 MG PO Q6HP PRN NAUSEA AND VOMITING Tiotropium [place] (Spiriva) 1 PUFF IH DAILY WARFARIN SOD (Warfarin 7.5MG) 5 MG PO SuMoTuThFrSa Digoxin (Lanoxin 0.125MG) 0.125 MG PO DAILY #30 Ferrous Sulfate (Ferrous Sulfate 325MG) 325 MG OR DAILY Levothyroxine Sodium 0.125 MG PO DAILY #90 TAB Clonazepam (Klonopin 0.5MG) 0.25 MG PO BID Gabapentin (Gabapentin 100MG) 100 MG PO QHS Metformin HCl (Metformin) 500 MG PO DAILY Atenolol (Atenolol) 25 MG PO TID TRAMADOL HCL (Tramadol) 50 MG PO Q6HP PRN pain ASPIRIN (Aspirin) 81 MG PO DAILY (Di Chaney MD) History Medical History General CAD? Yes Angina: Yes [place]: No Hypertension? Yes Hyperlipidemia? No CHF? Yes DVT? No PE? No COPD? No Asthma? Yes Anemia? No GERD? Yes Gastric ulcers? No GI Bleed? No Hernia? Yes Thyroid Problems? Yes Hypothyroidism? Yes CVA? No Seizures? No Diabetes? Yes Insulin Dependent: No Insulin Pump: No Home FSBS? No Renal Insuffiency? No End Stage Renal Disease? No UTI? Yes Stones? No BPH? No GB Disease: No Nephritic Syndrome? No Asplenia? No Hepatitis? No Sickle Cell Disease? No Arthritis? No Migraines? Yes Cataracts? No Glaucoma? No MRSA? Yes HIV? No TB? No Anxiety? Yes Depression? No Cancer? No More? 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 Respiratory no symptoms reported Cardiovascular see HPI, chest pain Gastrointestinal see HPI, abdominal pain Genitourinary no symptoms reported. Musculoskeletal no symptoms reported Skin no symptoms reported Psychiatric/Neurological no symptoms reported ([facility]) Physical Exam Vital Signs Vital Signs Date Time Temp Pulse Resp B/P Pulse O2 O2 Flow FiO2 Ox Delivery Rate 12/30 2024 97.9 70 16 129/79 92 12/30 1824 74 20 141/78 92 12/30 1759 12 12/30 1715 97.9 75 12 149/78 92 - WBC >12,000 or <4,000 or 10% bands? 2 or more SIRS Criteria Met? B/P:149/78 MAP:101 Creatinine >2.0? UA output<0.5ml/kg/hr for 2 hrs? Platelet count >100,000? Lactate >2.0mmol/1? INR >1.2 or PTT > than 60 sec? Evidence of Organ Dysfunction? Provider documented clinical suspician of infection? N Sepsis Criteria Count: 0 Sepsis Risk: Low Sepsis Risk General Appearance normal appearance, WD/WN Eye Exam - bilateral eye normal exam, bilateral eye PERRL, bilateral eye EOMI Ear, Nose, Throat hearing grossly normal, normal ENT inspection Neck normal inspection, non-tender, supple, full range of motion Respiratory Status Yes: trachea midline, chest symmetrical, non tender chest. No: respiratory distress. Lung Sounds bilateral: normal breath sounds, lungs clear. 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 2 or more SIRS Criteria Met? B/P:129/79 MAP:101 Creatinine >2.0? UA output<0.5ml/kg/hr for 2 hrs? Platelet count >100,000? Lactate >2.0mmol/1? INR >1.2 or PTT > than 60 sec? Evidence of Organ Dysfunction? Provider documented clinical suspician of infection? N Sepsis Criteria Count: 0 Sepsis Risk: Low Sepsis Risk Strength 4 Upper Ext (L), 4 Upper Ext (R), 4 Lower Ext (L), 4 Lower Ext (R) ([facility]) Medical Decision Making LABS/Meds/Orders Pt receiving controlled substance in ED? No Results/Orders Laboratory Tests 12/30/161814: Magnesium 2.3 H 12/30/161814: Sodium 143, Potassium 3.6, Chloride 104, Carbon Dioxide 31, BUN 15, Creatinine 1.0, Estimated Creat Clear 67, Estimated GFR (MDRD) 57 L, Glucose 122 H, Calcium 8.6, Total Bilirubin 0.4, AST 26, ALT 29, Alkaline Phosphatase 81, Creatine Kinase 38, CK-MB (CK-2) Rel Index 1.3, CK and CKMB Interp < 0.5, Troponin I 0.02, Total Protein 7.6, Albumin 4.2, Globulin 3.4 H, Albumin/ Globulin Ratio 1.2, Amylase 39, Lipase 131, PT 16.2 H, INR 1.49 H, APTT 32.0, WBC 11.6 H, RBC 3.99 L, Hgb 12.5, Hct 38.9, MCV 97.5, RDW 14.0, Plt Count 252, MPV 8.1, Gran % 80.5 H, Gran # 9.3 H, Lymphocytes % 12.8, Monocytes % 5.3, Eosinophils % 1.2, Basophils % 0.2, Lymphocytes # 1.5, Monocytes # 0.6, Eosinophils # 0.1, Basophils # 0.0, PUBS MCHC 32.3, MCH 31.5 H, Digoxin 0.88 L 12/30/16 1725: Stool Occult Blood NEGATIVE Current Medication Orders Sig/Kelley Start time Last Medication Dose Route Stop Time Status Admin Morphine Sulfate 2 MG [id number] PRN 12/30 1800 AC IV Morphine Sulfate 2 MG ONCE ONE 12/30 1799 DC 12/30 IV 12/30 1801 1759 Ondansetron HCl 4 MG ONCE ONE 12/30 1800 DC 12/30 IV 12/30 1801 1759 Morphine Sulfate 0 .STK-MED ONE 12/30 1755 DC .ROUTE Ondansetron HCl 0 .STK-MED ONE 12/30 1755 DC .ROUTE Diatrizoate Meglum/ 0 .STK-MED ONE 12/30 1735 DC Diatrizoate Sod .ROUTE Diatrizoate Meglum/ 30 ML ONCE ONE 12/30 1730 DC 12/30 Diatrizoate Sod PO 12/30 1731 1739 Sodium Chloride 10 ML PRN PRN 12/30 1730 AC IV 12/31 1718 Orders Procedure Date/time Status DIET-NOTHING BY MOUTH 12/[address] ABD & PELVIS W/O CONTRAST 12/30 1919 Active DIGOXIN 12/30 1749 Complete PARTIAL THROMBOPLASTIN TIME 12/30 1735 Complete PROTHROMBIN TIME 12/30 1735 Complete MAGNESIUM 12/30 1735 Complete STOOL OCCULT BLOOD 12/30 1730 Complete 12 LEAD EKG-ALBERT (INITIAL) 12/30 1719 Active ELECTROCARDIOGRAM REQUEST 12/[address] ABD/PELVIS REQ 12/30 1719 Complete IV SALINE LOCK 12/30 1719 Active LIPASE 12/30 1719 Complete CBC WITH AUTO DIFF 12/30 1719 Complete CARDIAC ENZYMES 12/30 1719 Complete CHEM 12 PROFILE 12/30 1719 Complete AMYLASE 12/30 1719 Complete CM/EKG CM/EKG EKG baseline atrial fibrillations with demand pacemaker with unifocal PVCs and left ventricular hypertrophy changes and ST and T-wave changes ischemia cannot be ruled out ([facility]) XRAY/CT/US XRAY/CT/US CT abdomen, pelvis CT interpretation by discussed w/radiologist Time results known: 2034 CT Results normal/NAD ([facility]) Departure Departure Time of Disposition 1732 Condition STABLE Additional Instructions The patient was medicated with Zofran and morphine, CT scan was pending. care was transferred to dr. Godinez pending CT scan and disposition. Dr. Gorman Discharge Counseling Counseled pt/family regarding diagnosis, test results, medications/RX, home care, follow up needs ED Critical Care Critical Care No If Critical Care minutes are documented, the time involved in the performance of seperately reportable procedures was not counted toward critical care time documented. I directly delivered medical care to this critically ill and/or injured patient. Timely evaluation and treatment was necessary to address the significant organ system(s) dysfunction present in this patient. (Kylee Gorman MD) Departure Disposition DC Home or Self Care(routine) Clinical Impression Primary Impression: Abdominal pain Qualifiers: Abdominal location: generalized Qualified Code: R10.84 - Generalized abdominal pain Secondary Impressions: Atypical chest pain, History of Coumadin therapy Referrals Summer Concepcion MD (Family) discussed with dr concepcion Prescriptions Current Visit Scripts Polyethylene Glycol 3350 (Miralax) 17 GM PO DAILY #30 PKT DISSOLVE IN 8 OZ BEVERAGE (Di Chaney MD) at 2014 at 2052
[2016-12-30 17:45] LABS: STOOL OCCULT BLOOD NEGATIVE (NEG)
[2016-12-30 18:47] LABS: HEMOGLOBIN 12.5 g/dL (12.2-16.2); LYMPH # 1.5 K/mm3 (0.7-4.5); LYMPH % 12.8 % (10-50.0)
[2016-12-30 19:03] LABS: BUN 15 mg/dL (7-18)
[2016-12-30 19:05] LABS: GFR (ESTIMATED) 57 ML/MIN (59-)
[2016-12-30] MEDS ORDERED: MIRALAX17 GM/PACK PO (20:51)
[2016-12-30 21:11] VITALS: BP 129/79
--- NOTE | 2016-12-31 14:48 | RADIOLOGY REPORT PS360 ---
CT ABD PELVIS W/O CONTRAST CLINICAL INDICATION: Abdominal pain and constipation ABD PAIN ORDERING PHYSICIAN: Di Chaney MD PATIENT AGE: 56 years COMPARISON: 12/09/2016 TECHNIQUE: Axial images obtained with sagittal and coronal reformats. PROCEDURE: Oral Contrast: None IV Contrast: None . FINDINGS:FINDINGS: Lower thoracic images show marked cardiomegaly with thickening of the pericardium posteriorly. There has been prior mitral valve replacement. There is mild hepatomegaly with hepatic steatosis. Postcholecystectomy changes. The spleen, adrenal glands, and pancreas are unremarkable. No renal calculi or hydronephrosis. No ureteral calculi. No intestinal obstruction or free air. There is moderate amount retained colonic feces. Postsurgical changes are present involving the intra-abdominal wall with mesh in the lower abdominal wall anteriorly. There is some minimal thickening of the right paracolic gutter and hepatorenal region. Scattered small nodes are present in the right lower quadrant and mesentery's nonspecific. No evidence of appendicitis or diverticulitis Old fractures are present involving the left pubic. Prior left sacroiliac fusion IMPRESSION: 1. Constipation. 2. Mild hepatomegaly with hepatic steatosis. 3. Minimal stranding of the fat in the right paracolic gutter region of questionable clinical significance. 4. Other nonacute findings as described above
== END 2016-12-30 21:11 | disposition home or self-care (01) ==
LOC: ER 17:14
PROVIDERS: Emergency Medicine
DX: R10.84 Generalized abdominal pain (principal); R07.89 Other chest pain; I25.10 Atherosclerotic heart disease of native coronary artery without angina pectoris; I11.0 Hypertensive heart disease with heart failure; I50.9 Heart failure, unspecified; J45.909 Unspecified asthma, uncomplicated; K21.9 Gastro-esophageal reflux disease without esophagitis; E11.9 Type 2 diabetes mellitus without complications; F41.9 Anxiety disorder, unspecified; I48.2 Chronic atrial fibrillation; Z95.2 Presence of prosthetic heart valve; Z79.01 Long term (current) use of anticoagulants; Z95.0 Presence of cardiac pacemaker; Z79.82 Long term (current) use of aspirin; Z79.891 Long term (current) use of opiate analgesic; Z79.899 Other long term (current) drug therapy; E89.0 Postprocedural hypothyroidism
CPT/HCPCS: G0328; J2405